=== PATIENT | female | born 1955 | race Caucasian/White ===

== ENCOUNTER → 2016-10-17 | Outpatient (CLI) | payer MEDICAID ==
--- NOTE | 2016-10-18 11:19 | XCELERA REPORT ---
[address] [address] Lower Extremity Arterial Evaluation Name: HUA CAVANAUGH Age: 60 yrs Gender: Female : 1955 Patient Status: Outpatient Patient Location: Study Date: 10/17/2016 10:08 AM Procedure: A color flow and duplex scan of the lower extremity arteries was performed bilaterally with velocity and waveform anaylsis. Ankle brachial indicies performed. Reason For Study: PVD Ordering Physician: QI STATON Performed By: Roney Martino Measurements and Calculations Right Left SENIOR LITIGATION PARALEGAL PSV 197.4 155.4 cm/sec Prox PFA PSV -180.7 -145.4 cm/sec Dist SFA PSV -115.2 -130.4 cm/sec Dist Pop A PSV 102.7 78.1 cm/sec Dist ASHOK PSV 89.9 65.3 cm/sec Dist RAIL TECHNICIAN PSV 94.8 110.0 cm/sec Slade Pedis PSV 120.1 42.4 cm/sec Right Side Arterial Evaluation Normal velocity and triphasic waveforms noted from the Common Femoral artery to the Popliteal. Biphasic with well preserved velocity in the infrageniculate vessels. 0-19% stenosis at the infrageniculate Vesels . Ankle Brachial index is 1.22. Left Side Arterial Evaluation Normal velocity and triphasic waveforms noted from the Common Femoral artery to the Popliteal. Biphasic with well preserved velocity in the infrageniculate vessels. 0-19% stenosis at the infrageniculate Vesels . Ankle Brachial index is 1.21. Interpretation Summary Mild hemodynamically significant lesions in the bilateral lower extremities, on duplex imaging, at rest. : QI STATON > Qi Staton
== END ==
LOC: SP 09:51
PROVIDERS: ATTEND Surgery
DX: I73.9 Peripheral vascular disease, unspecified (principal)
CPT/HCPCS: 93925

== ENCOUNTER 2017-01-17 15:56 | Inpatient (IN) | payer MEDICAID ==
--- NOTE | 2017-01-17 16:12 | ER Document Report ---
ED General - General Chief Complaint: Altered Mental Status Stated Complaint: UNCONSCIOUS Time Seen by Provider: 01/17/17 16:05 Information source: Emergency Med Personnel Notes: Patient reportedly found by family members earlier this afternoon altered mental status. History of alcohol abuse. History of prescription drug and chronic pain. Patient has prescriptions for muscle relaxants as well as narcotics. When EMS arrived patient was difficult to arouse. With open eyes. Pupils were 2 mm bilaterally. 0.4 mg Narcan given IV. IV established. Patient did respond. Patient was placed on gurney and transported to the emergency department. Patient is arousable on arrival. Sitting upright on the stretcher. Opening eyes. Protecting airway. Following commands. Sleepy but arousable. Denies any complaints at this time. TRAVEL OUTSIDE OF THE [place] IN LAST 30 DAYS: No - Related Data Allergies/Adverse Reactions: No Known Allergies Allergy (Verified 01/17/17 18:22) Past Medical History - General Cannot obtain history due to: Altered mental status - Social History Smoking Status: Unknown if Ever Smoked Family History: CAD, Hyperlipidemia, Hypertension - Past Medical History Cardiac Medical History: Reports: Hx Hypertension Pulmonary Medical History: Reports: Hx COPD - Recent Dx GI Medical History: Reports: Hx Gastroesophageal Reflux Disease Psychiatric Medical History: Reports: Hx Depression - Immunizations Hx Diphtheria, Pertussis, Tetanus Vaccination: Yes Review of Systems - Review of Systems -: Yes ROS unobtainable due to patient's medical condition Physical Exam - Vital signs Vitals: Resp BP Pulse Ox 18 157/77 H 94 01/17/17 16:06 01/17/17 16:06 01/17/17 16:06 Interpretation: Normal - General General appearance: Appears well, Alert, Lethargic - HEENT Head: Normocephalic, Atraumatic Eyes: Normal Pupils: PERRL - Respiratory Respiratory status: No respiratory distress Chest status: Nontender Breath sounds: Normal Chest palpation: Normal - Cardiovascular Rhythm: Regular Heart sounds: Normal auscultation Murmur: No - Abdominal Inspection: Normal Distension: No distension Bowel sounds: Normal Tenderness: Nontender Organomegaly: No organomegaly - Back Back: Normal, Nontender - Extremities General upper extremity: Normal inspection, Nontender, Normal color, Normal ROM , Normal temperature General lower extremity: Normal inspection, Nontender, Normal color, Normal ROM , Normal temperature, Normal weight bearing. No: Gavino's sign - Neurological Neuro grossly intact: Yes Cognition: Normal Orientation: AAOx4 [place] Coma Scale Eye Opening: Spontaneous Just[place] Coma Scale Verbal: Oriented [place] Coma Scale Motor: Obeys Commands [place] Coma Scale Total: 15 Speech: Normal Motor strength normal: LUE, RUE, LLE, RLE Sensory: Normal - Psychological Associated symptoms: Normal affect, Normal mood - Skin Skin Temperature: Warm Skin Moisture: Dry Skin Color: Normal Course - Re-evaluation Re-evalutation: 01/17/17 19:10 Delay in obtaining labs unknown reason at this time. Labs are finally coming back. Patient slightly low bicarb. An ABG with a pH 7.29. Likely a metabolic acidosis with some combined respiratory acidosis. Patient will need to be admitted likely to ICU. Head CT, chest x-ray, EKG unremarkable. Negative alcohol. Negative Tylenol. No signs of trauma. Responded initially to Narcan. Does have prescription for narcotics as well as muscle relaxants. Will consult with hospitalist for admission at this time. 01/17/17 19:32 Consulted with hospitalist, Dr. Paris. We will tentatively place patient in ICU due to her obtunded status. Unclear etiology of patient's altered mental status. Suspect this time this could be prescription medication reaction as she does have narcotics as well as muscle relaxants. Blood cultures have been obtained. We will proceed with admission at this time. - Vital Signs Vital signs: Temp Pulse Resp BP Pulse Ox 97.6 F 75 13 145/68 H 93 01/17/17 16:48 01/17/17 16:48 01/17/17 17:01 01/17/17 17:01 01/17/17 17:01 - Laboratory Result Diagrams: 01/17/17 18:30 01/17/17 18:30 Laboratory results interpreted by me: 01/17/17 01/17/17 01/17/17 18:18 18:30 18:30 WBC 20.8 H Seg Neuts % (Manual) 83 H Lymphocytes % (Manual) 10 L Abs Neuts (Manual) 17.3 H Abs Monocytes (Manual) 1.5 H ABG pH 7.29 L ABG pO2 68.9 L ABG HCO3 19.0 L ABG Total CO2 20.2 L ABG O2 Saturation 91.9 L Sodium 136.0 L Carbon Dioxide 16 L Est GFR ( Amer) 59 L Est GFR (Non-Af Amer) 49 L Direct Bilirubin 0.6 H Acetaminophen < 10 L - Diagnostic Test Radiology reviewed: Reports reviewed Radiology results interpreted by me: 01/17/17 19:35 CT head unremarkable. chest x-ray unremarkable. 01/17/17 19:35 - EKG Interpretation by Me EKG shows normal: Sinus rhythm Rate: Normal Rhythm: NSR When compared to previous EKG there are: Previous EKG unavailable Critical Care Note - Critical Care Note Total time excluding time spent on procedures (mins): 60 Comments: Patient with acidosis, metabolic acidosis as well as altered mental status from presumptive overdose. Systems involved include metabolic and neurological dysfunction Discharge - Discharge Clinical Impression: Metabolic acidosis Altered mental status, unspecified Qualifiers: Altered mental status type: unspecified Qualified Code(s): R41.82 - Altered mental status, unspecified Leukocytosis Qualifiers: Leukocytosis type: unspecified Qualified Code(s): D72.829 - Elevated white blood cell count, unspecified Disposition: ADMITTED INPATIENT Unit Admitted: ICU Referrals: GRETTA GREY MD [Primary Care Provider] - Follow up as needed
--- NOTE | 2017-01-17 16:55 | RADIOLOGY REPORT (SQ) ---
EXAM DESCRIPTION: CHEST SINGLE VIEW COMPLETED DATE/TIME: 01/17/2017 4:48 pm REASON FOR STUDY: sob COMPARISON: 02/24/2015 EXAM PARAMETERS: NUMBER OF VIEWS: One view. TECHNIQUE: Single frontal radiographic view of the chest acquired. RADIATION DOSE: NA LIMITATIONS: None. FINDINGS: LUNGS AND PLEURA: No opacities, masses or pneumothorax. No pleural effusion. MEDIASTINUM AND HILAR STRUCTURES: No masses. Contour normal. HEART AND VASCULAR STRUCTURES: Heart normal in size. Normal vasculature. BONES: No acute findings. HARDWARE: None in the chest. OTHER: No other significant finding. IMPRESSION: NO ACUTE RADIOGRAPHIC FINDING IN THE CHEST. TECHNICAL DOCUMENTATION: JOB ID: [id number]
--- NOTE | 2017-01-17 17:20 | RADIOLOGY REPORT (SQ) ---
EXAM DESCRIPTION: CT HEAD WITHOUT COMPLETED DATE/TIME: 01/17/2017 5:04 pm REASON FOR STUDY: alterd mental status COMPARISON: None. TECHNIQUE: Axial images acquired through the brain without intravenous contrast. Images reviewed wi th bone, brain and subdural windows. Images stored on PACS. All CT scanners at this facility use dose modulation, iterative reconstruction, and/or weight based d osing when appropriate to reduce radiation dose to as low as reasonably achievable (ALARA). [facility]: Dose Right [facility]: CareDose [facility]: Dose Right [facility]: Teradose 4D [facility]: [employer] Technologies RADIATION DOSE: Up-to-date CT equipment and radiation dose reduction techniques were employed. CTDIv ol: 64.6 mGy. DLP: 1551 mGy-cm. mGy. LIMITATIONS: None. FINDINGS: VENTRICLES: Normal size and contour. CEREBRUM: No masses. No hemorrhage. No midline shift. No evidence for acute infarction. Normal gra y/white matter differentiation. No areas of low density in the white matter. CEREBELLUM: No masses. No hemorrhage. No alteration of density. No evidence for acute infarction. EXTRAAXIAL SPACES: No fluid collections. No masses. ORBITS AND GLOBE: No intra- or extraconal masses. Normal contour of globe without masses. CALVARIUM: No fracture. PARANASAL SINUSES: No fluid or mucosal thickening. SOFT TISSUES: No mass or hematoma. OTHER: No other significant finding. IMPRESSION: No acute intracranial findings. EVIDENCE OF ACUTE STROKE: NO. COMMENT: Quality ID # [id number]: Final reports with documentation of one or more dose reduction techniques (e.g., Automated exposure control, adjustment of the mA and/or kV according to patient size, use of iterative reconstruction technique) TECHNICAL DOCUMENTATION: JOB ID: [id number] [employer]- All Rights Reserved
[2017-01-17 18:30] LABS: ARTERIAL BLOOD BASE EXCESS -7.1 mmol/L; ARTERIAL BLOOD O2 SATURATION 91.9 % (94-98)
[2017-01-17] MEDS ORDERED: NORMAL SALINE 1000 ML 1,000 ML IV ONE (18:44)
[2017-01-17 19:03] LABS: ALANINE AMINOTRANSFERASE 18 U/L (9-52); ALBUMIN 4.3 g/dL (3.5-5.0); ALCOHOL < 10 mg/dL (NONE DETECTED); ALKALINE PHOSPHATASE 115 U/L (38-126); ANION GAP 14 (5-19); ASPARTATE AMINO TRANSFERASE 20 U/L (14-36); BILIRUBIN,DIRECT 0.6 mg/dL (0.0-0.4); BILIRUBIN,TOTAL 0.6 mg/dL (0.2-1.3); BLOOD UREA NITROGEN 18 mg/dL (7-20); CARBON DIOXIDE 16 mmol/L (22-30); CHLORIDE 106 mmol/L (98-107); CREATINE KINASE 68 U/L (30-135); CREATININE RESULT 1.14 mg/dL (0.52-1.25); GLUCOSE 108 mg/dL (75-110); POTASSIUM 4.6 mmol/L (3.6-5.0); TOTAL PROTEIN 7.2 g/dL (6.3-8.2)
[2017-01-17 19:04] LABS: HEMATOCRIT 43.9 % (36.0-47.0); HEMOGLOBIN 14.8 g/dL (12.0-15.5); HGB HCT DIFFERENCE 0.5; MEAN CORPUSCULAR HEMOGLOBIN 30.1 pg (27.0-33.4); MEAN CORPUSCULAR HGB CONC 33.6 g/dL (32.0-36.0); MEAN CORPUSCULAR VOLUME 90 fl (80-97); RED CELL DISTRIBUTION WIDTH 13.5 % (11.5-14.0); WHITE BLOOD COUNT 20.8 10^3/uL (4.0-10.5)
[2017-01-17 19:13] LABS: BASOPHILS % (MANUAL) 0 % (0-2); EOSINOPHILS % (MANUAL) 0 % (0-6); LYMPHOCYTES % (MANUAL) 10 % (13-45); TOTAL CELLS COUNTED 100
[2017-01-17 19:16] LABS: OVALOCYTES SLIGHT; POIKILOCYTOSIS SLIGHT; TOXIC GRANULATION SLIGHT
[2017-01-17 20:16] LABS: APPEARANCE,URINE CLEAR; BILIRUBIN,URINE NEGATIVE (NEGATIVE); GLUCOSE, URINE NEGATIVE (NEGATIVE); KETONES,URINE NEGATIVE (NEGATIVE); LEUKOCYTE ESTERASE,URINE NEGATIVE (NEGATIVE); NITRITE,URINE NEGATIVE (NEGATIVE); PROTEIN,URINE NEGATIVE (NEGATIVE); URINE SPECIFIC GRAVITY 1.005; UROBILINOGEN,URINE NEGATIVE mg/dL (<2.0)
[2017-01-17 20:18] LABS: URINE BARBITURATES SCREEN NEGATIVE; URINE METHADONE SCREEN NEGATIVE; URINE OPIATES LOW NEGATIVE; URINE PHENCYCLIDINE SCREEN NEGATIVE
[2017-01-17] MEDS ORDERED: IPRATROPIUM/ALBUTEROL 0.5-2.5 MG/3 ML AMPUL NEB PRN (21:26)
[2017-01-17] MEDS ORDERED: DEXTROSE 50%-WATER 25 GM/50 ML DISP.SYRIN IV PRN ×2 (21:28)
[2017-01-17] MEDS ORDERED: DEXTROSE 40% GEL 15 GM TUBE PO PRN ×2 (21:28)
[2017-01-17] MEDS ORDERED: GLUCAGON,HUMAN RECOMB 1 MG INJ SUBCUT PRN (21:28)
[2017-01-17] MEDS ORDERED: INSULIN LISPRO 100 UNIT/ML 3 ML VIAL SUBCUT PRN (21:34)
[2017-01-17] MEDS ORDERED: ACETAMINOPHEN 650 MG SUPP.RECT PR PRN (21:35)
[2017-01-17] MEDS ORDERED: PROMETHAZINE HCL 25 MG SUPP.RECT PR PRN (21:36)
[2017-01-17] MEDS ORDERED: AMPICILLIN SOD/SULBACTAM 3 GM VIAL IV SCH (21:45)
[2017-01-17] MEDS ORDERED: METHYLPREDNISOLONE INJ 125 MG/2 ML SDV IV SCH (21:45)
[2017-01-17] MEDS ORDERED: PHARMACY COMMUNICATION ORDER MC SCH (21:45)
[2017-01-17] MEDS ORDERED: HEPARIN SOD (PORCINE) 5,000 UNIT/ML 1 ML SYRINGE SUBCUT SCH (22:00)
[2017-01-17] MEDS ORDERED: AZITHROMYCIN 500 MG in DEXTROSE 5%-WATER 250 ML IV SCH (22:00)
[2017-01-17] MEDS ORDERED: CEFTRIAXONE 1 GM/D5W RTU 50 ML IV SCH (22:00)
--- NOTE | 2017-01-17 22:14 | PDOC H&P ---
History of Present Illness Admission Date/PCP: 01/17/17 19:58 GRETTA GREY MD Patient complains of: Altered mental status History of Present Illness: HUA CAVANAUGH is a 61 year old female, pack-a-day smoker, in with a history of both alcohol abuse and cocaine use, although no alcohol or drug use for at least 2 years according to sister, who presents to the emergency room by EMS after call from family due to above complaint. Patient has been discussed with emergency room physician who evaluated the patient. Patient looks at speaker slightly and briefly when her name is called , but is essentially nonverbal and otherwise not interactive with her surroundings and is able to provide no history whatsoever in terms of acute or chronic events, review of systems, personal habits, family history, etc. sister is present at her side and is helpful and informative. Old inpatient records are reviewed. Patient lives alone, but has close family support. She was last seen in her normal state on the fourth, when sister took her out shopping. No specific complaints at that time, including headache chest or abdominal pain, fever or chills, nausea vomiting, diarrhea or dysuria. When patient did not answer her phone today, sister present at bedside, along with another sister, went to house and found her sitting in a chair, basically unresponsive to verbal stimuli. No evidence of emesis or diarrhea. EMS was called. Patient was difficult to arouse. Eyes were open, with 2 mm bilateral pupils. Given 0.4 mg of IV Narcan, with slight response per EMS. Has remained hemodynamically stable. Sister did state that patient has been having "bad nightmares" increasingly frequently lately, and suspects her sister may have taken additional medications to relieve these nightmares. No prior seizure, stroke, TIA, or mini stroke. No history of overdose. No suicidal or homicidal ideation. According to sister, patient is otherwise compliant with medications and Dr. follow-up visits. She does not drive due to chronic difficulty with ambulation , requiring bilateral braces and a cane. Chronic bilateral foot drop?? Otherwise, she is able to maintain activities of daily living, including shopping, cooking and cleaning her house. 2 years ago, patient had severe pneumonia, requiring a 3 month stay at [facility]. Hospitalized on our service February 14-2014, with discharge diagnoses including necrotizing pneumonia with cavitary right upper lobe lesion, atrial fibrillation with rapid ventricular response moderate aortic regurgitation with mild pulmonary hypertension. Discharge summary has been reviewed. Was admitted to our service February 2011 with diagnoses including chest pain, alcohol abuse, with a case of beer every 3 days at that point in time, pack-a- day smoker, and cocaine abuse. Copy of the history and physical has been reviewed. Dictation via voice recognition software. Laboratory results are listed in [facility] and are reviewed. X-ray summary results are listed below, with full report(s) reviewed. . EKG reviewed. Social history/personal habits: Lives alone. Has children. On disability due to above issues. Personal habits as noted above. No known drug allergies. Home medications initially autopopulated into sevenload may not accurately reflect patient's true medications, dosages, and/or frequencies. bone density technician to reconcile medications. Unfortunately, patient not able to provide any information related to medications/dosages/frequencies; likewise for sister. REVIEW OF SYSTEMS: See history and present illness. No further information available this point in time. PHYSICAL EXAMINATION: Female emergency room nursing information systems coordinator Jayy is present. Sister Phuong Harris is present at her side. 5 feet 7 inches tall. 83.9 kg. BMI 29 kg/m. Blood pressure 173/76. 91% saturation on 1 L oxygen per nasal cannula. Pulse 94 and regular. Respirations are 21 and unlabored, although somewhat coarse in nature. Temperature 97.6. Chronically ill-appearing female who appears a number of years older than her stated age. Patient is somewhat somnolent, but does open eyes occasionally spontaneously. See above comments in history and present illness. Maintaining airway well. Skin is warm and dry. No grossly obvious evidence of rash in areas of skin examined. No subcutaneous nodules palpated. ENT: See above comments in history of present illness. No coffman sign. Eyes: No scleral icterus. Pupils equal and reactive to light at 4 mm. [place] conjunctivae. No raccoon eyes. Neck is supple and nontender to gentle passive range of motion and palpation. Midline trachea. No palpable thyroid nodule mass enlargement or tenderness. Lymphatic: No palpable cervical or clavicular nodes. Neck and lymphatic exams limited by patient body habitus. Psychiatric: Not able to be adequately evaluated due to above issues. Lungs: Auscultation reveals equal breath sounds bilaterally. No use of accessory respiratory muscles. Coarse breath sounds bilaterally, which I think are combination of both upper and lower airway sounds. Cardiovascular: Heart regular rate and rhythm, without gallop murmur or rub. No carotid or abdominal aortic bruits. Mild bilateral symmetric slightly pitting lower calf, ankle, and pedal edema. Faintly palpable right dorsalis pedis and left posterior tibial pulses. Abdomen:soft slightly distended nontender with positive bowel sounds. Unable to adequately evaluate abdomen for masses or organomegaly due to distention. Extremities: Hands and feet are warm and dry. No calf tenderness to compression. No grossly obvious visual evidence of calf swelling. Gentle manipulation of upper and lower extremities fails to reveal any obvious evidence of injury or instability to involved major joints. Neuro: Cranial Nerves not able to be adequately examined due to above issues. Light touch not able to be adequately examined due to above issues. Moves all 4 extremities grossly normally. Hand liner roll changer 5/5 and symmetric. Does not follow requests or commands for testing of other muscle groups of upper and lower extremities. Patellar reflexes absent. Absent Babinski. No nystagmus. No rigidity. No ankle clonus. Slightly tremulous at times, but no evidence of seizure activity. Past Medical History Cardiac Medical History: Reports: Atrial Fibrillation - History of, February 2015, Congestive Heart Failure - History of during her hospital stay for pneumonia 2 years ago., Hypertension Denies: DVT, Myocardial Infarction, Hyperlipidema, Pulmonary Embolism Pulmonary Medical History: Reports: Chronic Obstructive Pulmonary Disease (COPD ) - Recent Dx Denies: Asthma, Sleep Apnea EENT Medical History: Reports: Eyes - Wears glasses, Ears - Partial hearing loss Denies: Throat Neurological Medical History: Denies: Hemorrhagic CVA, Ischemic CVA, Seizures Endocrine Medical History: Denies: Diabetes Mellitus Type 1, Diabetes Mellitus Type 2, Hyperthyroidism, Hypothyroidism Renal/ Medical History: Reports: None GI Medical History: Reports: Gastroesophageal Reflux Disease Denies: Cirrhosis, Hepatitis, Peptic Ulcer Disease Musculoskeltal Medical History: Denies: Arthritis Skin Medical History: Reports: None Psychiatric Medical History: Reports: Alcohol Dependency, Depression, General Anxiety Disorder, Substance Abuse, Tobacco Dependency, Other - History of cocaine use. History of alcohol abuse. Hematology: Reports: Other - Easy bruising Infectious Medical History: Denies: Hepatitis B, Hepatitis C Past Surgical History Past Surgical History: Reports: None Social History Information Source: Relative - Sister, Emergency Med Personnel, [facility] [place] Records Lives with: Alone - Close follow-up family support Smoking Status: Current Every Day Smoker - 1 pack per day Frequency of Alcohol Use: None - History of alcohol abuse; reportedly none since 2014 Hx Recreational Drug Use: Yes Drugs: Cocaine - History of use, Marijuana - History of use, Other - Reportedly no illicit drug use since at least 2014 Hx Prescription Drug Abuse: No - Advance Directive Resuscitation Status: Full Code Surrogate healthcare decision maker:: Sister Phuong Harris Family History Family History: CAD, Hyperlipidemia, Hypertension Parental Family History Reviewed: Yes - Mother is diabetic. Father of uncertain cause. Children Family History Reviewed: Yes - Healthy Sibling(s) Family History Reviewed.: Yes - Healthy Medication/Allergy Home Medications: Cyclobenzaprine HCl [Flexeril 10 mg Tablet] 10 mg PO TID 01/18/17 Ibuprofen [Motrin 800 mg Tablet] 800 mg PO BID 01/18/17 Albuterol Sulfate [Ventolin HFA MDI 18 GM] 1 - 2 puff IH Q4H PRN #1 mdi Amoxicillin/Potassium Clav [Augmentin 875-125 Tablet] 1 each PO BID #14 tablet 01/20/17 Diltiazem HCl [Cardizem Cd 180 mg Capsule] 180 mg PO Q12 #60 capsule.cr Divalproex Sodium [Depakote ER 500 mg Tab.sr] 500 mg PO BID #60 tab.sr.24h 01/20 Fluoxetine HCl [Prozac 20 mg Capsule] 20 mg PO DAILY #30 capsule 01/20/17 Metoprolol Succinate 100 mg PO Q12 #60 tab.er.24h 01/20/17 Prednisone [Deltasone 20 mg Tablet] 20 mg PO BID #10 tablet 01/20/17 Risperidone [Risperdal 1 mg Tablet] 1 mg PO QHS #30 tablet 01/20/17 Allergies/Adverse Reactions: No Known Allergies Allergy (Verified 01/17/17 18:22) Physical Exam Vital Signs: Temp Pulse Resp BP Pulse Ox 97.6 F 75 13 145/68 H 93 01/17/17 16:48 01/17/17 16:48 01/17/17 17:01 01/17/17 17:01 01/17/17 17:01 Results Impressions: Chest X-Ray 01/17/17 16:07 IMPRESSION: NO ACUTE RADIOGRAPHIC FINDING IN THE CHEST. Head CT 01/17/17 16:07 IMPRESSION: No acute intracranial findings. EVIDENCE OF ACUTE STROKE: NO. Assessment & Plan - Diagnosis (1) Elevated LFTs Is this a current diagnosis for this admission?: Yes Plan: Mild. Follow-up chemistry. No known underlying biliary disease. (2) ARF (acute renal failure) Qualifiers: Acute renal failure type: unspecified Qualified Code(s): N17.9 - Acute kidney failure, unspecified Is this a current diagnosis for this admission?: Yes Plan: Suspect prerenal, due to decreased p.o. intake. Mild. Follow-up chemistry. (3) Nightmares Is this a current diagnosis for this admission?: Yes (4) Tobacco dependency Is this a current diagnosis for this admission?: Yes Plan: As needed nicotine patch. (5) Abnormal breath sounds Is this a current diagnosis for this admission?: Yes Plan: Suspect due to aspiration. We will treat as for aspiration pneumonia. Aspiration precautions. (6) Leukocytosis Qualifiers: Leukocytosis type: unspecified Qualified Code(s): D72.829 - Elevated white blood cell count, unspecified Is this a current diagnosis for this admission?: Yes (7) Acute encephalopathy Is this a current diagnosis for this admission?: Yes Plan: Suspect due to likely unintentional prescription drug overdose. Intensive care unit. Seizure precautions. Should clear with time and treatment. I have encouraged sister to remind patient not to get out of bed, to avoid a fall with injury. Knee high SCDs for DVT prophylaxis, along with subcutaneous heparin. Impression and plans were discussed with sister, who concurs. Time spent in evaluation and management of patient: 70 critical care minutes. (8) Falls frequently Is this a current diagnosis for this admission?: Yes Plan: Suspect due to chronic difficulty walking, including use of braces, crutch, and reported bilateral foot drop. Physical therapy consult. (9) Depression Qualifiers: Depression Type: unspecified Qualified Code(s): F32.9 - Major depressive disorder, single episode, unspecified Is this a current diagnosis for this admission?: Yes Plan: Resume home medications as appropriate once these have been determined and reviewed. (10) Hypertension Qualifiers: Hypertension type: essential hypertension Qualified Code(s): I10 - Essential (primary) hypertension Is this a current diagnosis for this admission?: Yes Plan: Resume home medications as appropriate once these have been determined and reviewed. (11) Difficulty waking Is this a current diagnosis for this admission?: Yes (12) Metabolic acidosis Is this a current diagnosis for this admission?: Yes Plan: Should clear with time and treatment. Follow-up chemistry. (13) Aspiration into airway Qualifiers: Encounter type: initial encounter Qualified Code(s): T17.908A - Unspecified foreign body in respiratory tract, part unspecified causing other injury, initial encounter Is this a current diagnosis for this admission?: Yes Plan: Aspiration precautions. Unasyn. N.p.o. for the present time. - Time Critical Time spent with patient: 35 or more minutes Anticipated discharge: Home Within: within 72 hours - Inpatient Certification Based on my medical assessment, after consideration of the patient's comorbidities, presenting symptoms, or acuity I expect that the services needed warrant INPATIENT care.: Yes I certify that my determination is in accordance with my understanding of Medicare's requirements for reasonable and necessary INPATIENT services [42 CFR 412.3e].: Yes Medical Necessity: Need Close Monitoring Due to Risk of Patient Decompensation, Need For IV Fluids, Need For Continuous Telemetry Monitoring, Need for Nebulizer Therapy and Monitoring of Response, Need for IV Antibiotics, Risk of Diagnosis Which Will Require Inpatient Eval/Care/Monitoring Post Hospital Care: D/C or Transfer Summary
[2017-01-17 22:15] LABS: ADD ON TESTING BLD IN LAB ACKNOWLEDGE
[2017-01-17 22:24] LABS: PROTHROMBIN TIME 12.6 SEC (11.4-15.4)
[2017-01-17 22:38] LABS: MAGNESIUM 1.9 mg/dL (1.6-2.3)
[2017-01-17] MEDS ORDERED: THIAMINE HCL INJ 200 MG/2 ML VIAL IV PRN (23:22)
[2017-01-17] MEDS ORDERED: THIAMINE HCL 100 MG in NORMAL SALINE 50 ML IV ONE (23:30)
[2017-01-18] MEDS ORDERED: THIAMINE HCL INJ 200 MG/2 ML VIAL ONE (00:49)
[2017-01-18] MEDS: FAMOTIDINE INJ/PF 20 MG/2 ML SDV IV SCH ×3 (00:54→22:22)
[2017-01-18] MEDS: AMPICILLIN SODIUM/SULBACTAM NA 3 GM in NORMAL SALINE 100 ML IV SCH ×4 (00:54→18:16)
[2017-01-18] MEDS: NORMAL SALINE 1000 ML 1,000 ML IV PRN ×2 (00:57→06:22)
[2017-01-18 01:21] LABS: VENOUS BLOOD BASE EXCESS -4.3 mmol/L; VENOUS BLOOD HCO3 22.9 mmol/L (20-32); VENOUS BLOOD PCO2 50.3 mmHg (35-63); VENOUS BLOOD PH 7.28 (7.30-7.42)
[2017-01-18 01:48] LABS: FREE T3 3.12 pg/mL (2.77-5.27)
[2017-01-18] MEDS ORDERED: HYDRALAZINE HCL INJ/PF 20 MG/1 ML SDV IV PRN (02:43)
[2017-01-18] MEDS ORDERED: DILTIAZEM HCL INJ 25 MG/5 ML VIAL ONE (05:55)
[2017-01-18 05:59] LABS: ABSOLUTE BASOPHILS # (AUTO) 0.2 10^3/uL (0.0-0.2); ABSOLUTE EOSINOPHILS # (AUTO) 0.2 10^3/uL (0.0-0.6); ABSOLUTE LYMPHOCYTES (AUTO) 2.4 10^3/uL (0.5-4.7); ABSOLUTE MONOCYTES (AUTO) 0.9 10^3/uL (0.1-1.4); ABSOLUTE NEUT (AUTO) 9.2 10^3/uL (1.7-8.2); BASOPHILS % (AUTO) 1.2 % (0-2); EOSINOPHILS % (AUTO) 1.7 % (0-6); HEMATOCRIT 36.7 % (36.0-47.0); HGB HCT DIFFERENCE 0.8; LYMPHOCYTES % (AUTO) 18.7 % (13-45); MEAN CORPUSCULAR HEMOGLOBIN 30.4 pg (27.0-33.4); MEAN CORPUSCULAR HGB CONC 33.9 g/dL (32.0-36.0); MEAN CORPUSCULAR VOLUME 90 fl (80-97); MONOCYTES % (AUTO) 7.2 % (3-13); RED CELL DISTRIBUTION WIDTH 12.8 % (11.5-14.0); SEGMENTED NEUTROPHILS % (AUTO) 71.2 % (42-78)
[2017-01-18 06:00] LABS: VENOUS BLOOD BASE EXCESS -5.1 mmol/L; VENOUS BLOOD HCO3 20.9 mmol/L (20-32); VENOUS BLOOD PCO2 42.4 mmHg (35-63); VENOUS BLOOD PH 7.31 (7.30-7.42)
[2017-01-18] MEDS ORDERED: NORMAL SALINE 1000 ML 500 ML IV ONE (06:00)
[2017-01-18 06:03] LABS: ALANINE AMINOTRANSFERASE 25 U/L (9-52); ALBUMIN 3.3 g/dL (3.5-5.0); ALKALINE PHOSPHATASE 95 U/L (38-126); ANION GAP 12 (5-19); ASPARTATE AMINO TRANSFERASE 13 U/L (14-36); BILIRUBIN,DIRECT 0.4 mg/dL (0.0-0.4); BILIRUBIN,TOTAL 0.4 mg/dL (0.2-1.3); BLOOD UREA NITROGEN 11 mg/dL (7-20); CALCIUM 8.9 mg/dL (8.4-10.2); CARBON DIOXIDE 18 mmol/L (22-30); CHLORIDE 114 mmol/L (98-107); CREATININE RESULT 0.73 mg/dL (0.52-1.25); GLUCOSE 85 mg/dL (75-110); POTASSIUM 3.8 mmol/L (3.6-5.0); SODIUM 143.6 mmol/L (137-145); TOTAL PROTEIN 5.7 g/dL (6.3-8.2)
[2017-01-18] MEDS ORDERED: DILTIAZEM HCL/D5W 125 MG/125 ML RTUINJ IV ONE (06:03)
[2017-01-18] MEDS ORDERED: DILTIAZEM HCL INJ 25 MG/5 ML VIAL IV ONE ×2 (06:04)
[2017-01-18] MEDS ORDERED: DILTIAZEM HCL/D5W 125 MG/125 ML RTUINJ IV PRN (06:04)
[2017-01-18 06:05] LABS: HEMOGLOBIN 12.5 g/dL (12.0-15.5)
[2017-01-18] MEDS ORDERED: BACITRACIN ZINC OINTMENT 15 GM TP PRN (08:21)
[2017-01-18] MEDS ORDERED: MAGNESIUM SULFATE/D5W 1 GM/100 ML RTUPB IV ONE (09:00)
[2017-01-18] MEDS ORDERED: DILTIAZEM HCL 180 MG CAPSULE.CR PO ONE (09:00)
[2017-01-18] MEDS: NICOTINE 21 MG/24 HR PATCH.TD24 TD SCH (09:08)
[2017-01-18] MEDS: ENOXAPARIN SODIUM INJ 60 MG/0.6 ML DISP.SYRIN SUBCUT SCH ×2 (09:09→22:22)
[2017-01-18] MEDS ORDERED: DIPH/PERTUSS(ACELL)/TETANUS VAC/PF 0.5 ML SYR (>=10YO) IM ONE (09:30)
[2017-01-18] MEDS ORDERED: METOPROLOL TARTRATE PF/INJ 5 MG/5 ML SDV IV ONE ×3 (09:47→18:46)
[2017-01-18] MEDS ORDERED: ENOXAPARIN SODIUM INJ 40 MG/0.4 ML DISP.SYRIN SUBCUT SCH (10:00)
[2017-01-18] MEDS ORDERED: THIAMINE HCL 100 MG in NORMAL SALINE 50 ML IV SCH (10:00)
--- NOTE | 2017-01-18 10:57 | EKG REPORT ---
SEVERITY:- BORDERLINE ECG - SINUS RHYTHM PROBABLE LEFT ATRIAL ABNORMALITY : Confirmed by: Dena Castanon MD 18-Jan-2017 10:57:14
--- NOTE | 2017-01-18 10:57 | EKG REPORT ---
SEVERITY:- ABNORMAL ECG - ATRIAL FIBRILLATION, V-RATE 121-185 CONSIDER LEFT [address]ULAR HY[address] DEPRESSION, PROBABLY RATE RELATED : Confirmed by: Dena Castanon MD 18-Jan-2017 10:57:09
--- NOTE | 2017-01-18 11:57 | PDOC CONSULTATION ---
Consultation Consult Date: 01/18/17 Attending physician:: JOSE PARIS Consult reason:: Atrial fibrillation History of Present Illness Admission Date/PCP: 01/17/17 21:26 GRETTA GREY MD Patient complains of: Altered mental status History of Present Illness: HUA CAVANAUGH is a 61 year old female, pack-a-day smoker, in with a history of both alcohol abuse and cocaine use, although no alcohol or drug use for at least 2 years according to sister, who presents to the emergency room by EMS after call from family due to above complaint. Patient has been discussed with emergency room physician who evaluated the patient. Patient looks at speaker slightly and briefly when her name is called , but is essentially nonverbal and otherwise not interactive with her surroundings and is able to provide no history whatsoever in terms of acute or chronic events, review of systems, personal habits, family history, etc. sister is present at her side and is helpful and informative. Old inpatient records are reviewed. Patient lives alone, but has close family support. She was last seen in her normal state on the fourth, when sister took her out shopping. No specific complaints at that time, including headache chest or abdominal pain, fever or chills, nausea vomiting, diarrhea or dysuria. When patient did not answer her phone today, sister present at bedside, along with another sister went to house and found her sitting in a chair, basically unresponsive to verbal stimuli. No evidence of emesis or diarrhea. EMS was called. Patient was difficult to arouse. Eyes were open, with 2 mm bilateral pupils. Given 0.4 mg of IV Narcan, with slight response by EMS. Has remained hemodynamically stable. Sister did state that patient has been having "bad nightmares" increasingly frequently lately, and suspects her sister may have taken additional medications to relieve these nightmares. No prior seizure, stroke, TIA, or mini stroke. No history of overdose. No suicidal or homicidal ideation. According to sister, patient is otherwise compliant with medications and Dr. follow-up visits. She does not drive due to chronic difficulty with ambulation , requiring bilateral braces and a cane. Chronic bilateral foot drop?? Otherwise, she is able to maintain activities of daily living, including shopping, cooking and cleaning her house. 2 years ago, patient had severe pneumonia, requiring a 3 month stay at [facility]. Hospitalized on our service February 14-2014, with discharge diagnoses including necrotizing pneumonia with cavitary right upper lobe lesion, atrial fibrillation with rapid ventricular response moderate aortic regurgitation with mild pulmonary hypertension. Discharge summary has been reviewed. Was admitted to our service February 2011 with diagnoses including chest pain, alcohol abuse, with a case of beer every 3 days at that point in time, pack-a- day smoker, and cocaine abuse. Copy of the history and physical has been reviewed. This history obtained by Dr. Paris was reviewed. Today patient on questioning told me that she just took extra of her regular sleeping pills and had mental status changes. On questioning she is denying any chest pain, shortness of breath or any other significant discomfort or complaints. Patient wanting to be discharged home. Past Medical History Cardiac Medical History: Reports: Atrial Fibrillation - History of, February 2015, Congestive Heart Failure - History of during her hospital stay for pneumonia 2 years ago., Hypertension Denies: DVT, Myocardial Infarction, Hyperlipidema, Pulmonary Embolism Pulmonary Medical History: Reports: Chronic Obstructive Pulmonary Disease (COPD ) - Recent Dx Denies: Asthma, Sleep Apnea EENT Medical History: Reports: Eyes - Wears glasses, Ears - Partial hearing loss , Other - Easy bruising Denies: Throat Neurological Medical History: Denies: Hemorrhagic CVA, Ischemic CVA, Seizures Endocrine Medical History: Denies: Diabetes Mellitus Type 1, Diabetes Mellitus Type 2, Hyperthyroidism, Hypothyroidism Renal/ Medical History: Reports: None GI Medical History: Reports: Gastroesophageal Reflux Disease Denies: Cirrhosis, Hepatitis, Peptic Ulcer Disease Musculoskeltal Medical History: Denies: Arthritis Skin Medical History: Reports: None Psychiatric Medical History: Reports: Alcohol Dependency, Depression, General Anxiety Disorder, Substance Abuse, Tobacco Dependency, Other - History of cocaine use. History of alcohol abuse. Hematology: Reports: Other - Easy bruising Infectious Medical History: Denies: Hepatitis B, Hepatitis C Past Surgical History Past Surgical History: Reports: None Social History Information Source: Patient Lives with: Alone - Close follow-up family support Smoking Status: Current Every Day Smoker - 1 pack per day Cigarettes Packs Per Day: 1 Last Time Smoked: 01/17/17 Frequency of Alcohol Use: None - History of alcohol abuse; reportedly none since 2014 Hx Recreational Drug Use: Yes Drugs: Cocaine - History of use, Marijuana - History of use, Other - Reportedly no illicit drug use since at least 2014 Hx Prescription Drug Abuse: No - Advance Directive Resuscitation Status: Full Code Surrogate healthcare decision maker:: Patient sister is the surrogate decision-maker Family History Family History: CAD, Hyperlipidemia, Hypertension Parental Family History Reviewed: Yes Children Family History Reviewed: Yes Sibling(s) Family History Reviewed.: Yes Medication/Allergy Home Medications: Cyclobenzaprine HCl [Flexeril 10 mg Tablet] 10 mg PO TID 01/18/17 Duloxetine HCl [Cymbalta] 30 mg PO DAILY 01/18/17 Eszopiclone [Lunesta] 2 mg PO QHS 01/18/17 Ibuprofen [Motrin 800 mg Tablet] 800 mg PO BID 01/18/17 Potassium Chloride [Klor-Con M20] 20 meq PO DAILY 01/18/17 Allergies/Adverse Reactions: No Known Allergies Allergy (Verified 01/17/17 18:22) Review of Systems Review of Systems: Please see history of present illness and past medical history as wall. Constitutional: No fever or chills reported. Head : No recent chronic headaches, recent head injury. Eyes: No recent eye pain, diplopia, redness, discharge, acute visual changes. Ears: No recent chronic ear pain, acute hearing loss, ear discharge. Oral cavity: No recent ulcerations, bleeding, oral cavity discomfort. Neck: No recent acute neck pain reported. Hematologic: No recent easy bruising or bleeding or hematologic malignancy reported. Lymphatic: No recent lymphatic malignancy, chronic lymphadenopathy reported yet Cardiovascular system review: See history of present illness. Respiratory system review: No recent chronic cough, hemoptysis, blood clots in the lungs reported. Mild Shortness of breath on exertion Gastrointestinal system review: Negative for any recent acute or chronic abdominal pain, hematemesis, melena, recent change in bowel habits. Genitourinary system review: No recent acute or chronic hematuria, flank pain, UTI etc. reported. Skin system review: Negative for any recent abnormal bruising, no rash, no pruritus reported. Neurologic: No prior history of strokes, mini strokes, seizure disorder. Psychologic: No history of major psychosis or major depression reported. Musculoskeletal: Minor aches and pains reported. No acute joint swelling reported. Endocrine: No recent polyuria, polydipsia, recent heat or cold intolerance. Physical Exam Vital Signs: Temp Pulse Resp BP Pulse Ox 98.4 F 114 H 14 151/77 H 99 01/18/17 06:00 10/06/17 08:00 01/18/17 08:00 01/18/17 06:10 01/18/17 08:00 Intake & Output 01/17/17 01/18/17 01/19/17 06:59 06:59 06:59 Intake Total 2466 Output Total 900 Balance -900 2466 Weight 58.3 kg Exam: GENERAL: well-nourished and in no acute distress. Alert and oriented x3 HEAD: Atraumatic, normocephalic. EYES: Pupils equal round and reactive to light, extraocular movements intact, sclera anicteric, conjunctiva are normal. ENT: TMs normal, nares patent, oropharynx clear without exudates. Moist mucous membranes. No oral ulcerations or bleeding gums noted NECK: supple without lymphadenopathy. Trachea is central. No cervical or axillary lymphadenopathy noted. Carotids are 2+, JVD WNL LUNGS: Respiration seems nonlabored, no significant accessory muscle action noted. Breath sounds clear to auscultation bilaterally and equal noted. No wheezes rales or rhonchi noted. No significant dullness noted on percussion. CHEST: Palpation of the chest wall shows no significant chest wall tenderness. No other significant abnormalities noted. 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 ABDOMEN: Soft, no significant tenderness appreciated, normoactive bowel sounds. No guarding, no rebound. No rigidity noted . No masses appreciated. EXTREMITIES: Pedal pulses are 1-2+, no calf tenderness noted. No clubbing or cyanosis.trace to 1+ pedal edema noted NEUROLOGICAL: Focused neurological exam showed no significant neurologic deficit. Normal speech, no focal weakness appreciated. PSYCH: Normal mood, normal affect. Judgment and insight within normal limits. SKIN: No significant ecchymosis, rash, ulcerations or signs of pruritus noted. MUSCULOSKELETAL EXAM: No significant joint swelling noted. Results Laboratory Results: 01/18/17 05:40 01/18/17 05:40 01/17/17 01/17/17 01/17/17 22:10 22:10 22:10 WBC RBC Hgb Hct MCV MCH MCHC RDW Plt Count Seg Neutrophils % Lymphocytes % Monocytes % Eosinophils % Basophils % Absolute Neutrophils Absolute Lymphocytes Absolute Monocytes Absolute Eosinophils Absolute Basophils VBG pH VBG pCO2 VBG HCO3 VBG Base Excess Sodium Potassium Chloride Carbon Dioxide Anion Gap BUN Creatinine Est GFR ( Amer) Est GFR (Non-Af Amer) Glucose Lactic Acid 0.7 Calcium Magnesium 1.9 Total Bilirubin AST ALT Alkaline Phosphatase Ammonia Total Protein Albumin TSH 0.22 L Free T4 Free T3 pg/mL 01/17/17 01/17/17 01/18/17 22:10 22:10 01:14 WBC RBC Hgb Hct MCV MCH MCHC RDW Plt Count Seg Neutrophils % Lymphocytes % Monocytes % Eosinophils % Basophils % Absolute Neutrophils Absolute Lymphocytes Absolute Monocytes Absolute Eosinophils Absolute Basophils VBG pH 7.28 L VBG pCO2 50.3 VBG HCO3 22.9 VBG Base Excess -4.3 Sodium Potassium Chloride Carbon Dioxide Anion Gap BUN Creatinine Est GFR ( Amer) Est GFR (Non-Af Amer) Glucose Lactic Acid Calcium Magnesium Total Bilirubin AST ALT Alkaline Phosphatase Ammonia < 8.7 L Total Protein Albumin TSH Free T4 1.58 Free T3 pg/mL 3.12 01/18/17 01/18/17 01/18/17 05:40 05:40 05:40 WBC 13.0 H RBC 4.10 Hgb 12.5 D Hct 36.7 MCV 90 MCH 30.4 MCHC 33.9 RDW 12.8 Plt Count 290 Seg Neutrophils % 71.2 Lymphocytes % 18.7 Monocytes % 7.2 Eosinophils % 1.7 Basophils % 1.2 Absolute Neutrophils 9.2 H Absolute Lymphocytes 2.4 Absolute Monocytes 0.9 Absolute Eosinophils 0.2 Absolute Basophils 0.2 VBG pH 7.31 VBG pCO2 42.4 VBG HCO3 20.9 VBG Base Excess -5.1 Sodium 143.6 Potassium 3.8 Chloride 114 H Carbon Dioxide 18 L Anion Gap 12 BUN 11 Creatinine 0.73 Est GFR ( Amer) > 60 Est GFR (Non-Af Amer) > 60 Glucose 85 Lactic Acid Calcium 8.9 Magnesium Total Bilirubin 0.4 AST 13 L ALT 25 Alkaline Phosphatase 95 Ammonia Total Protein 5.7 L Albumin 3.3 L TSH Free T4 Free T3 pg/mL 01/18/17 05:40 WBC RBC Hgb Hct MCV MCH MCHC RDW Plt Count Seg Neutrophils % Lymphocytes % Monocytes % Eosinophils % Basophils % Absolute Neutrophils Absolute Lymphocytes Absolute Monocytes Absolute Eosinophils Absolute Basophils VBG pH VBG pCO2 VBG HCO3 VBG Base Excess Sodium Potassium Chloride Carbon Dioxide Anion Gap BUN Creatinine Est GFR ( Amer) Est GFR (Non-Af Amer) Glucose Lactic Acid Calcium Magnesium 1.9 Total Bilirubin AST ALT Alkaline Phosphatase Ammonia Total Protein Albumin TSH Free T4 Free T3 pg/mL 01/18/17 01/18/17 01:14 05:40 Troponin I < 0.012 0.012 EKG Comments: Atrial fibrillation with rapid ventricular response. No acute ST-T wave changes noted. Impressions: Chest X-Ray 01/17/17 16:07 IMPRESSION: NO ACUTE RADIOGRAPHIC FINDING IN THE CHEST. Head CT 01/17/17 16:07 IMPRESSION: No acute intracranial findings. EVIDENCE OF ACUTE STROKE: NO. Assessment & Plan - Diagnosis (1) Atrial fibrillation with RVR Is this a current diagnosis for this admission?: Yes (2) Altered mental status, unspecified Qualifiers: Altered mental status type: unspecified Qualified Code(s): R41.82 - Altered mental status, unspecified Is this a current diagnosis for this admission?: Yes (3) COPD (chronic obstructive pulmonary disease) with emphysema Qualifiers: Emphysema type: unspecified Qualified Code(s): J43.9 - Emphysema, unspecified (4) Tobacco dependency Is this a current diagnosis for this admission?: Yes - Notes Notes: Atrial fibrillation with rapid ventricular response: This was noted on presentation. Currently patient in sinus rhythm. At this point recommend Cardizem therapy for rate control should patient to atrial fibrillation. As regards chronic anticoagulation, patient chads score is 1. Therefore in view of patient's other comorbid diagnosis and history of noncompliance, substance abuse, feel that just aspirin therapy should be adequate. A 2D echo has been ordered to further risk stratify this patient. Altered mental status: Most likely related to substance and drug abuse. COPD: Patient seems to have a significant COPD problem. Tobacco dependency: Patient has been advised to quit smoking. - Time Time Spent: 30 to 50 Minutes - CODE STATUS was discussed, patient remains full code. Surrogate decision-maker unchanged. Multiple medical problems were addressed. More than 50% of the time spent coordinating care, discussing management plans with involved caregivers. Management plans discussed with involved personnels. Medical decision making was of moderate to high complexity , patient's has multiple comorbidities. Medications reviewed and adjusted accordingly: Yes
[2017-01-18] MEDS ORDERED: INFLUENZA ADLT QUAD (36MOS+) 2017-18 VAC 0.5 ML SYR IM PRN (13:11)
--- NOTE | 2017-01-18 14:00 | RADIOLOGY REPORT (SQ) ---
EXAM DESCRIPTION: CTA CHEST COMPLETED DATE/TIME: 01/18/2017 1:16 pm REASON FOR STUDY: new onset a-fib COMPARISON: CT angio chest 02/24/2015, 02/14/2015 Chest film 01/17/2017 TECHNIQUE: CT scan of the chest performed using helical scanning technique with dynamic intravenous contrast injection. Images reviewed with lung, soft tissue and bone windows. Reconstructed coronal and sagittal MPR images reviewed. Additional 3 dimensional post-processing performed to develop Maximal Intensity Projection images (MT P). All images stored on PACS. All CT scanners at this facility use dose modulation, iterative reconstruction, and/or weight based d osing when appropriate to reduce radiation dose to as low as reasonably achievable (ALARA). [facility]: Dose Right [facility]: CareDose [facility]: Dose Right [facility]: Teradose 4D [facility]: TMAT CONTRAST TYPE AND DOSE: contrast/concentration: Isovue 370.00 mg/ml; Total Contrast Delivered: 58.0 ml; Total Saline Delivered: 84.2 ml Contrast bolus optimized for the pulmonary arteries. Not diagnostic for the aorta. RENAL FUNCTION: Creatinine 0.73 RADIATION DOSE: Up-to-date CT equipment and radiation dose reduction techniques were employed. CTDIv ol: 5.1 - 9.4 mGy. DLP: 202 mGy-cm. . LIMITATIONS: None. FINDINGS: LUNGS AND PLEURA: No masses, infiltrates, pneumothorax. No pleural effusions, calcificati ons. Hyperinflation and hyperlucency at both upper lobes from obstructive disease. Bandlike scarrin g posterior right lung apex in an area of dense consolidation seen in 2015. AORTA AND GREAT VESSELS: No aneurysm. Contrast bolus not optimized for the aorta. HEART: No pericardial effusion. No significant coronary artery calcifications. PULMONARY ARTERIES: No emboli visualized in the main pulmonary arteries or the segmental branches. HILAR AND MEDIASTINAL STRUCTURES: No identified masses or abnormal nodes. HARDWARE: None in the chest. UPPER ABDOMEN: No significant findings. Limited exam. THYROID AND OTHER SOFT TISSUES: No masses. No adenopathy. BONES: No acute or significant finding. 3D MIPS: Confirm above findings. OTHER: No other significant finding. IMPRESSION: No CT angio evidence of acute pulmonary emboli COMMENT: Quality ID # [id number]: Final reports with documentation of one or more dose reduction techniques (e.g., Automated exposure control, adjustment of the mA and/or kV according to patient size, use of iterative reconstruction technique) TECHNICAL DOCUMENTATION: JOB ID: [id number] [employer]- All Rights Reserved
[2017-01-18] MEDS ORDERED: DULOXETINE HCL 30 MG CAPSULE.DR PO ONE ×2 (15:00)
--- NOTE | 2017-01-18 18:05 | RADIOLOGY REPORT (SQ) ---
EXAM DESCRIPTION: MRI HEAD WITHOUT COMPLETED DATE/TIME: 01/18/2017 5:52 pm REASON FOR STUDY: anisocoria, RLE weakness, concern for cva, AMS COMPARISON: Head CT from 01/17/2017 TECHNIQUE: Multiplanar imaging includes non-contrasted T1, T2, FLAIR, and Diffusion with ADC map seq uences. Images stored on PACS. LIMITATIONS: None. FINDINGS: ANATOMY: No anomalies. Normal vascular flow voids. Pituitary fossa normal. CSF SPACES: Normal in size and contour. No hemorrhage. CEREBRUM: A few high-signal intensity lesions scattered throughout the white matter on FLAIR imaging with distribution suggesting chronic micro-vascular ischemic change. Sulci and gyri normal in size a nd contour. No evidence of hemorrhage, mass or extraaxial fluid collection. POSTERIOR FOSSA: No signal alteration. No hemorrhage. No edema, masses or mass effect. Internal bibi tory canals, cerebello-pontine angles, mastoids normal. DIFFUSION: Negative for acute or sub-acute infarction. ORBITS: No masses. Globes normal. PARANASAL SINUSES: No fluid levels. Mucosa normal. OTHER: No other significant finding. IMPRESSION: MINIMAL MICROVASCULAR ISCHEMIC CHANGE. OTHERWISE NORMAL STUDY. EVIDENCE OF ACUTE STROKE: NO. TECHNICAL DOCUMENTATION: JOB ID: [id number] [employer]- All Rights Reserved
[2017-01-18] MEDS ORDERED: METOPROLOL SUCCINATE 25 MG TAB.SR.24H PO SCH (19:00)
--- NOTE | 2017-01-18 19:01 | PDOC PROGRESS REPORT ---
Subjective Progress Note for:: 01/18/17 Subjective:: Patient is still quite confused and I see her. Patient seen earlier today on morning rounds. Patient denies chest pain, shortness of breath, abdominal pain , nausea, vomiting, fevers, chills, diarrhea, constipation, headache, new onset weakness. Physical Exam Vital Signs: Temp Pulse Resp BP Pulse Ox 97.7 F 92 18 130/80 H 100 01/18/17 12:00 01/18/17 15:54 01/18/17 15:54 01/18/17 15:54 01/18/17 15:54 Intake & Output 01/17/17 01/18/17 01/19/17 06:59 06:59 06:59 Intake Total 2584 Output Total 900 Balance -900 2584 Weight 58.3 kg Exam: General: Awake alert and oriented x2, no acute respiratory distress HEENT: AT/NC, PRRL-mild anisocoria, EOMI, oropharynx is moist, pink, no scleral icterus, no conjunctival injection Neck: No JVD, trachea midline Chest: Clear to auscultation bilaterally, no wheezes rhonchi or rales CV: IRR, 2/6 sm Abdomen: Soft, nontender to palpation, nondistended, active bowel sounds; no rebound, rigidity, or guarding Extremities: No cyanosis, clubbing or edema Neuro: Cranial nerves II through XII are grossly intact without focal deficits; awake alert and oriented x2 Psych: Normal mood and affect Results Laboratory Results: 01/18/17 05:40 01/18/17 05:40 01/17/17 01/17/17 01/17/17 22:10 22:10 22:10 WBC RBC Hgb Hct MCV MCH MCHC RDW Plt Count Seg Neutrophils % Lymphocytes % Monocytes % Eosinophils % Basophils % Absolute Neutrophils Absolute Lymphocytes Absolute Monocytes Absolute Eosinophils Absolute Basophils VBG pH VBG pCO2 VBG HCO3 VBG Base Excess Sodium Potassium Chloride Carbon Dioxide Anion Gap BUN Creatinine Est GFR ( Amer) Est GFR (Non-Af Amer) Glucose Lactic Acid 0.7 Calcium Magnesium 1.9 Total Bilirubin AST ALT Alkaline Phosphatase Ammonia Total Protein Albumin TSH 0.22 L Free T4 Free T3 pg/mL 01/17/17 01/17/17 01/18/17 22:10 22:10 01:14 WBC RBC Hgb Hct MCV MCH MCHC RDW Plt Count Seg Neutrophils % Lymphocytes % Monocytes % Eosinophils % Basophils % Absolute Neutrophils Absolute Lymphocytes Absolute Monocytes Absolute Eosinophils Absolute Basophils VBG pH 7.28 L VBG pCO2 50.3 VBG HCO3 22.9 VBG Base Excess -4.3 Sodium Potassium Chloride Carbon Dioxide Anion Gap BUN Creatinine Est GFR ( Amer) Est GFR (Non-Af Amer) Glucose Lactic Acid Calcium Magnesium Total Bilirubin AST ALT Alkaline Phosphatase Ammonia < 8.7 L Total Protein Albumin TSH Free T4 1.58 Free T3 pg/mL 3.12 01/18/17 01/18/17 01/18/17 05:40 05:40 05:40 WBC 13.0 H RBC 4.10 Hgb 12.5 D Hct 36.7 MCV 90 MCH 30.4 MCHC 33.9 RDW 12.8 Plt Count 290 Seg Neutrophils % 71.2 Lymphocytes % 18.7 Monocytes % 7.2 Eosinophils % 1.7 Basophils % 1.2 Absolute Neutrophils 9.2 H Absolute Lymphocytes 2.4 Absolute Monocytes 0.9 Absolute Eosinophils 0.2 Absolute Basophils 0.2 VBG pH 7.31 VBG pCO2 42.4 VBG HCO3 20.9 VBG Base Excess -5.1 Sodium 143.6 Potassium 3.8 Chloride 114 H Carbon Dioxide 18 L Anion Gap 12 BUN 11 Creatinine 0.73 Est GFR ( Amer) > 60 Est GFR (Non-Af Amer) > 60 Glucose 85 Lactic Acid Calcium 8.9 Magnesium Total Bilirubin 0.4 AST 13 L ALT 25 Alkaline Phosphatase 95 Ammonia Total Protein 5.7 L Albumin 3.3 L TSH Free T4 Free T3 pg/mL 01/18/17 05:40 WBC RBC Hgb Hct MCV MCH MCHC RDW Plt Count Seg Neutrophils % Lymphocytes % Monocytes % Eosinophils % Basophils % Absolute Neutrophils Absolute Lymphocytes Absolute Monocytes Absolute Eosinophils Absolute Basophils VBG pH VBG pCO2 VBG HCO3 VBG Base Excess Sodium Potassium Chloride Carbon Dioxide Anion Gap BUN Creatinine Est GFR ( Amer) Est GFR (Non-Af Amer) Glucose Lactic Acid Calcium Magnesium 1.9 Total Bilirubin AST ALT Alkaline Phosphatase Ammonia Total Protein Albumin TSH Free T4 Free T3 pg/mL 01/18/17 01/18/17 01:14 05:40 Troponin I < 0.012 0.012 Impressions: Chest X-Ray 01/17/17 16:07 IMPRESSION: NO ACUTE RADIOGRAPHIC FINDING IN THE CHEST. Head CT 01/17/17 16:07 IMPRESSION: No acute intracranial findings. EVIDENCE OF ACUTE STROKE: NO. Chest/Abdomen CTA 01/18/17 00:00 IMPRESSION: No CT angio evidence of acute pulmonary emboli Head MRI 01/18/17 00:00 IMPRESSION: MINIMAL MICROVASCULAR ISCHEMIC CHANGE. OTHERWISE NORMAL STUDY. EVIDENCE OF ACUTE STROKE: NO. Assessment & Plan - Diagnosis (1) Sepsis Qualifiers: Sepsis type: sepsis due to unspecified organism Qualified Code(s): A41.9 - Sepsis, unspecified organism Is this a current diagnosis for this admission?: Yes Plan: Patient with sepsis present on admission with white count of 20, heart rate greater than 90, secondary to COPD exacerbation. Continue to rule out other causes of sepsis. (2) COPD exacerbation Is this a current diagnosis for this admission?: Yes Plan: Place on site Medrol 40 mg IV every 8 and continue with Unasyn nebulized treatments as needed (3) Acute encephalopathy Is this a current diagnosis for this admission?: Yes Plan: Likely secondary to polypharmacy, and review of patient's medications that are reconciled, I find it hard to believe these are patient's only medications as I see my prior transfer summary for this patient approximately 2 years ago. (4) Atrial fibrillation with RVR Is this a current diagnosis for this admission?: Yes Plan: Patient on Cardizem drip and will attempt to transition her to oral (5) Tobacco dependency Is this a current diagnosis for this admission?: Yes Plan: Nicotine patch as needed
[2017-01-18] MEDS: METOPROLOL SUCCINATE 25 MG TAB.SR.24H PO SCH (22:22)
[2017-01-18] MEDS: METHYLPREDNISOLONE INJ 40 MG/1 ML SDV IV SCH (22:22)
[2017-01-18] MEDS: DILTIAZEM HCL 180 MG CAPSULE.CR PO SCH (22:22)
[2017-01-19] MEDS: AMPICILLIN SODIUM/SULBACTAM NA 3 GM in NORMAL SALINE 100 ML IV SCH ×2 (00:34→05:54)
[2017-01-19] MEDS ORDERED: ACETAMINOPHEN 325 MG TABLET PO PRN (01:03)
[2017-01-19] MEDS: METHYLPREDNISOLONE INJ 40 MG/1 ML SDV IV SCH (05:54)
[2017-01-19 08:36] LABS: ABSOLUTE BASOPHILS # (AUTO) 0.1 10^3/uL (0.0-0.2); ABSOLUTE LYMPHOCYTES (AUTO) 0.9 10^3/uL (0.5-4.7); ABSOLUTE NEUT (AUTO) 4.7 10^3/uL (1.7-8.2); BASOPHILS % (AUTO) 1.3 % (0-2); HEMOGLOBIN 11.9 g/dL (12.0-15.5); HGB HCT DIFFERENCE 0.7; LYMPHOCYTES % (AUTO) 15.6 % (13-45); MEAN CORPUSCULAR HEMOGLOBIN 30.1 pg (27.0-33.4); MEAN CORPUSCULAR VOLUME 89 fl (80-97); MONOCYTES % (AUTO) 0.5 % (3-13); RED BLOOD COUNT 3.96 10^6/uL (3.72-5.28); RED CELL DISTRIBUTION WIDTH 13.3 % (11.5-14.0); SEGMENTED NEUTROPHILS % (AUTO) 82.6 % (42-78); WHITE BLOOD COUNT 5.7 10^3/uL (4.0-10.5)
[2017-01-19 08:56] LABS: ANION GAP 11 (5-19); BLOOD UREA NITROGEN 4 mg/dL (7-20); CALCIUM 9.6 mg/dL (8.4-10.2); CARBON DIOXIDE 22 mmol/L (22-30); CHLORIDE 108 mmol/L (98-107); CREATININE RESULT 0.52 mg/dL (0.52-1.25); GLUCOSE 172 mg/dL (75-110); POTASSIUM 3.4 mmol/L (3.6-5.0); SODIUM 141.3 mmol/L (137-145)
[2017-01-19] MEDS ORDERED: POTASSIUM CHLORIDE 10 MEQ TABLET.SA PO ONE (09:15)
[2017-01-19] MEDS ORDERED: HALOPERIDOL LACTATE INJ 5 MG/1 ML VIAL IV PRN (09:18)
[2017-01-19] MEDS ORDERED: CYCLOBENZAPRINE HCL 10 MG TABLET PO PRN (09:20)
--- NOTE | 2017-01-19 09:36 | XCELERA REPORT ---
[address] [address] Transthoracic Echocardiogram Report Name: HUA CAVANAUGH Age: 61 yrs Gender: Female : 1955 Patient Status: Inpatient Patient Location: ICU^1^A Study Date: 01/18/2017 10:27 AM Height: 67 in Weight: 128 lb BSA: 1.7 m2 Procedure: A complete two-dimensional transthoracic echocardiogram was performed (2D, M-mode, spectral and color flow Doppler). The study was technically difficult with many images being suboptimal in quality. Reason For Study: resp distress Ordering Physician: MEGAN LOPEZ Performed By: Sonia Dickson Interpretation Summary The left ventricular ejection fraction is normal. There is mild concentric left ventricular hypertrophy. Doppler measurements suggest pseudonormalized left ventricular relaxation, which is associated with grade II/IV or mild to moderate diastolic dysfunction The left ventricle is grossly normal size. Not all wall segments were well visualized. The right ventricular systolic function is normal. The right atrium is normal in size The left atrium is borderline dilated. There is a trace to mild amount of mitral regurgitation There is no mitral valve stenosis. There is a moderate amount of aortic regurgitation There is no aortic valve stenosis There is a mild amount of tricuspid regurgitation There is mild pulmonary hypertension by echo Right ventricular systolic pressure is estimated to be elevated at 30- 40mmHg. The aortic root is not well visualized but is probably normal size. The inferior vena cava appeared normal and decreased > 50% with respiration (RAP 5-10 mmHg) Minimal pericardial effusion. MMode/2D Measurements & Calculations RVDd: 2.2 cm LVIDd: 4.5 cm FS: 37.6 % Ao root diam: 3.2 cm IVSd: 0.97 cm LVIDs: 2.8 cm EDV(Teich): 90.8 ml LVPWd: 1.00 cmESV(Teich): 29.1 ml Ao root area: 8.2 cm2 EF(Teich): 67.9 % LA dimension: 3.5 cm LVOT diam: 1.9 cm LVOT area: 2.9 cm2 Doppler Measurements & Calculations MV E max amairani: MV P1/2t max amairani: Ao V2 max: AI max amairani: 92.8 cm/sec 92.8 cm/sec 188.5 cm/sec 464.8 cm/sec MV A max amairani: MV P1/2t: 67.1 msec Ao max PG: AI max P.6 cm/sec MVA(P1/2t): 3.3 cm2 14.2 mmHg 86.4 mmHg MV E/A: 0.84 MV dec slope: CALI(V,D): 2.3 cm2 AI dec slope: 405.2 cm/sec2 328.3 cm/sec2 AI P1/2t: 414.7 msec LV V1 max PG: PA V2 max: TR max amairani: 8.9 mmHg 83.9 cm/sec 281.1 cm/sec LV V1 max: PA max P.8 mmHg TR max P.1 cm/sec 31.6 mmHg Left Ventricle The left ventricle is grossly normal size. There is mild concentric left ventricular hypertrophy. The left ventricular ejection fraction is normal. Doppler measurements suggest pseudonormalized left ventricular relaxation, which is associated with grade II/IV or mild to moderate diastolic dysfunction. Not all wall segments were well visualized. Right Ventricle The right ventricle is grossly normal size. There is normal right ventricular wall thickness. The right ventricular systolic function is normal. Atria The right atrium is normal in size. The left atrium is borderline dilated. Interarterial septum not well visualized and not well dopplered. Cannot comment on ASD/PFO presence. Mitral Valve The mitral valve leaflets are sclerotic, but show no functional abnormalities. There is no mitral valve stenosis. There is a trace to mild amount of mitral regurgitation. Aortic Valve The aortic valve is not well visualized secondary to technical limitations. There is no aortic valve stenosis. There is a moderate amount of aortic regurgitation. Tricuspid Valve The tricuspid valve is not well visualized, but is grossly normal. There is no tricuspid stenosis. There is a mild amount of tricuspid regurgitation. There is mild pulmonary hypertension by echo. Right ventricular systolic pressure is estimated to be elevated at 30-40mmHg. Pulmonic Valve The pulmonic valve is not well visualized. Great Vessels The aortic root is not well visualized but is probably normal size. The inferior vena cava appeared normal and decreased > 50% with respiration (RAP 5-10 mmHg). Effusions Minimal pericardial effusion. : MEGAN LOPEZ > Megan Lopez
[2017-01-19] MEDS ORDERED: DULOXETINE HCL 30 MG CAPSULE.DR PO SCH ×2 (10:00)
[2017-01-19] MEDS ORDERED: DIVALPROEX SODIUM 500 MG TAB.SR.24H PO ONE (10:00)
[2017-01-19] MEDS: NICOTINE 21 MG/24 HR PATCH.TD24 TD SCH (10:57)
[2017-01-19] MEDS: METOPROLOL SUCCINATE 25 MG TAB.SR.24H PO SCH ×2 (11:01→22:07)
[2017-01-19] MEDS: THIAMINE HCL 100 MG TABLET PO SCH (11:03)
[2017-01-19] MEDS: FLUOXETINE HCL 20 MG CAPSULE PO SCH (11:03)
[2017-01-19] MEDS: MAGNESIUM OXIDE 400 MG TABLET PO SCH ×2 (11:04→17:39)
[2017-01-19] MEDS: ENOXAPARIN SODIUM INJ 60 MG/0.6 ML DISP.SYRIN SUBCUT SCH ×2 (11:04→22:06)
[2017-01-19] MEDS: DILTIAZEM HCL 180 MG CAPSULE.CR PO SCH ×2 (11:06→22:07)
[2017-01-19] MEDS: PREDNISONE 20 MG TABLET PO SCH ×2 (11:07→17:39)
--- NOTE | 2017-01-19 11:21 | PDOC PROGRESS REPORT ---
Subjective Progress Note for:: 01/19/17 Subjective:: Patient seems to be doing better and is showing some improvement in general status. Patient however has been noted to be confused. Patient is not noted to have any chest arm or neck discomfort. Patient not noted to have or describing any PND, orthopnea.. Patient not noted to have fever chills. Patient does not seem to be in any other significant discomfort. Patient is maintaining sinus rhythm, frequent APCs noted. System review: No significant changes Medications reviewed. Physical Exam Vital Signs: Temp Pulse Resp BP Pulse Ox 97.9 F 86 20 158/82 H 97 01/19/17 05:03 01/19/17 08:00 01/19/17 08:00 01/19/17 08:00 01/19/17 08:00 Intake & Output 01/18/17 01/19/17 01/20/17 06:59 06:59 06:59 Intake Total 3484 Output Total 900 750 Balance -900 2734 Weight 58.3 kg Exam: GENERAL: well-nourished and in no acute distress. Alert and oriented x3. Patient noted to be intermittently confused by the nurses. HEAD: Atraumatic, normocephalic. EYES: Pupils equal round and reactive to light, extraocular movements intact, sclera anicteric, conjunctiva are normal. ENT: TMs normal, nares patent, oropharynx clear without exudates. Moist mucous membranes. No oral ulcerations or bleeding gums noted NECK: supple without lymphadenopathy. Trachea is central. No cervical or axillary lymphadenopathy noted. Carotids are 2+, JVD WNL LUNGS: Respiration seems nonlabored, no significant accessory muscle action noted. Breath sounds clear to auscultation bilaterally and equal noted. No wheezes rales or rhonchi noted. No significant dullness noted on percussion. CHEST: Palpation of the chest wall shows no significant chest wall tenderness. No other significant abnormalities noted. HEART: [facility], No PSH, 1/6 VANESSA aortic area, 1/6 [place] systolic murmur mitral area, no rubs, no gallops. ABDOMEN: Soft, no significant tenderness appreciated, normoactive bowel sounds. No guarding, no rebound. No rigidity noted . No masses appreciated. EXTREMITIES: Pedal pulses are 1-2+, no calf tenderness noted. No clubbing or cyanosis.trace to 1+ pedal edema noted NEUROLOGICAL: Focused neurological exam showed no significant neurologic deficit. Normal speech, no focal weakness appreciated. PSYCH: Normal mood, normal affect. Judgment and insight within normal limits. SKIN: No significant ecchymosis, rash, ulcerations or signs of pruritus noted. MUSCULOSKELETAL EXAM: No significant joint swelling noted. Results Laboratory Results: 01/19/17 08:24 01/19/17 08:24 01/19/17 01/19/17 01/19/17 08:24 08:24 08:24 WBC 5.7 RBC 3.96 Hgb 11.9 L Hct 35.0 L MCV 89 MCH 30.1 MCHC 34.0 RDW 13.3 Plt Count 299 Seg Neutrophils % 82.6 H Lymphocytes % 15.6 Monocytes % 0.5 L Eosinophils % 0.0 Basophils % 1.3 Absolute Neutrophils 4.7 Absolute Lymphocytes 0.9 Absolute Monocytes 0.0 L Absolute Eosinophils 0.0 Absolute Basophils 0.1 Sodium 141.3 Potassium 3.4 L Chloride 108 H Carbon Dioxide 22 Anion Gap 11 BUN 4 L Creatinine 0.52 Est GFR ( Amer) > 60 Est GFR (Non-Af Amer) > 60 Glucose 172 H Calcium 9.6 Ammonia 12.1 01/18/17 01/18/17 01:14 05:40 Troponin I < 0.012 0.012 EKG Comments: EKG strip shows sinus rhythm with frequent APCs at times. Impressions: Chest X-Ray 01/17/17 16:07 IMPRESSION: NO ACUTE RADIOGRAPHIC FINDING IN THE CHEST. Head CT 01/17/17 16:07 IMPRESSION: No acute intracranial findings. EVIDENCE OF ACUTE STROKE: NO. Chest/Abdomen CTA 01/18/17 00:00 IMPRESSION: No CT angio evidence of acute pulmonary emboli Head MRI 01/18/17 00:00 IMPRESSION: MINIMAL MICROVASCULAR ISCHEMIC CHANGE. OTHERWISE NORMAL STUDY. EVIDENCE OF ACUTE STROKE: NO. Assessment & Plan - Diagnosis (1) Atrial fibrillation with RVR Is this a current diagnosis for this admission?: Yes (2) Altered mental status, unspecified Qualifiers: Altered mental status type: unspecified Qualified Code(s): R41.82 - Altered mental status, unspecified Is this a current diagnosis for this admission?: Yes (3) COPD (chronic obstructive pulmonary disease) with emphysema Qualifiers: Emphysema type: unspecified Qualified Code(s): J43.9 - Emphysema, unspecified (4) Tobacco dependency Is this a current diagnosis for this admission?: Yes - Notes Notes: Atrial fibrillation with rapid ventricular response: This was noted on presentation. Currently patient in sinus rhythm. Continue Cardizem therapy. 2D echo shows relatively well-preserved LVEF. Therefore in view of patient's other comorbid diagnosis and history of noncompliance, substance abuse, feel that just aspirin therapy should be adequate. Altered mental status: Most likely related to substance and drug abuse. Further evaluation may be indicated. COPD: Patient seems to have a significant COPD problem. Tobacco dependency: Patient has been advised to quit smoking. - Time Time with patient: Greater than 35 minutes - CODE STATUS was discussed, patient remains full code. Surrogate decision-maker unchanged. Multiple medical problems were addressed. More than 50% of the time spent coordinating care, discussing management plans with involved caregivers. Management plans discussed with involved personnels. Medical decision making was of moderate to high complexity, patient's has multiple comorbidities. Medications reviewed and adjusted accordingly: Yes
[2017-01-19] MEDS: AMOXICILLIN TR/POT CLAVULANATE 500-125 MG TAB PO SCH ×2 (14:29→22:06)
--- NOTE | 2017-01-19 15:30 | PDOC PROGRESS REPORT ---
Subjective Progress Note for:: 01/19/17 Subjective:: Patient seen earlier today on morning rounds. Patient denies chest pain, shortness of breath, abdominal pain, nausea, vomiting , fevers, chills, diarrhea, constipation, headache, new onset weakness. Patient is quite tearful, and while oriented to person, place, and time patient exhibits some quite unusual thinking and appears to be functionally impaired. Patient adamantly denies drinking or using drugs prior to admission. She reports her psychiatric provider has recently decreased her Cymbalta as she did not tolerate high doses of this. It seems as this corresponded to a change in her mood. Physical Exam Vital Signs: Temp Pulse Resp BP Pulse Ox 97.9 F 86 20 158/82 H 97 01/19/17 05:03 01/19/17 12:00 01/19/17 12:00 01/19/17 12:00 01/19/17 12:00 Intake & Output 01/18/17 01/19/17 01/20/17 06:59 06:59 06:59 Intake Total 3484 Output Total 900 750 Balance -900 2734 Weight 58.3 kg Exam: General: Awake alert and oriented x3, no acute respiratory distress HEENT: AT/NC, PRRL-mild anisocoria, EOMI, oropharynx is moist, pink, no scleral icterus, no conjunctival injection Neck: No JVD, trachea midline Chest: Clear to auscultation bilaterally, no wheezes rhonchi or rales CV: RRR, 2/6 sm Abdomen: Soft, nontender to palpation, nondistended, active bowel sounds; no rebound, rigidity, or guarding Extremities: No cyanosis, clubbing or edema Neuro: Cranial nerves II through XII are grossly intact without focal deficits; awake alert and oriented x3 Psych: Extremely labile, tearful, unusual affect, depressed mood Results Laboratory Results: 01/19/17 08:24 01/19/17 08:24 01/19/17 01/19/17 01/19/17 08:24 08:24 08:24 WBC 5.7 RBC 3.96 Hgb 11.9 L Hct 35.0 L MCV 89 MCH 30.1 MCHC 34.0 RDW 13.3 Plt Count 299 Seg Neutrophils % 82.6 H Lymphocytes % 15.6 Monocytes % 0.5 L Eosinophils % 0.0 Basophils % 1.3 Absolute Neutrophils 4.7 Absolute Lymphocytes 0.9 Absolute Monocytes 0.0 L Absolute Eosinophils 0.0 Absolute Basophils 0.1 Sodium 141.3 Potassium 3.4 L Chloride 108 H Carbon Dioxide 22 Anion Gap 11 BUN 4 L Creatinine 0.52 Est GFR ( Amer) > 60 Est GFR (Non-Af Amer) > 60 Glucose 172 H Calcium 9.6 Magnesium Ammonia 12.1 01/19/17 08:24 WBC RBC Hgb Hct MCV MCH MCHC RDW Plt Count Seg Neutrophils % Lymphocytes % Monocytes % Eosinophils % Basophils % Absolute Neutrophils Absolute Lymphocytes Absolute Monocytes Absolute Eosinophils Absolute Basophils Sodium Potassium Chloride Carbon Dioxide Anion Gap BUN Creatinine Est GFR ( Amer) Est GFR (Non-Af Amer) Glucose Calcium Magnesium 1.8 Ammonia 01/18/17 01/18/17 01:14 05:40 Troponin I < 0.012 0.012 Impressions: Chest X-Ray 01/17/17 16:07 IMPRESSION: NO ACUTE RADIOGRAPHIC FINDING IN THE CHEST. Head CT 01/17/17 16:07 IMPRESSION: No acute intracranial findings. EVIDENCE OF ACUTE STROKE: NO. Chest/Abdomen CTA 01/18/17 00:00 IMPRESSION: No CT angio evidence of acute pulmonary emboli Head MRI 01/18/17 00:00 IMPRESSION: MINIMAL MICROVASCULAR ISCHEMIC CHANGE. OTHERWISE NORMAL STUDY. EVIDENCE OF ACUTE STROKE: NO. Assessment & Plan - Diagnosis (1) Sepsis Qualifiers: Sepsis type: sepsis due to unspecified organism Qualified Code(s): A41.9 - Sepsis, unspecified organism Is this a current diagnosis for this admission?: Yes Plan: Patient with sepsis present on admission with white count of 20, heart rate greater than 90, secondary to COPD exacerbation/aspiration pneumonia. (2) COPD exacerbation Is this a current diagnosis for this admission?: Yes Plan: Transition patient to oral prednisone and Augmentin. Continue scheduled nebulized treatments. Concern for aspiration pneumonia. Concern also that steroids may be causing minor psychosis. (3) Acute encephalopathy Is this a current diagnosis for this admission?: Yes Plan: At this time, I suspect that this is multifactorial due to underlying mental illness, medication withdrawal, sepsis. Will consult psychology for their interpretation of this. (4) Atrial fibrillation with RVR Is this a current diagnosis for this admission?: Yes Plan: Patient doing well on Cardizem and metoprolol. Continue Lovenox. Have physical therapy evaluate patient for ambulation before deciding on anticoagulation (5) Tobacco dependency Is this a current diagnosis for this admission?: Yes Plan: Nicotine patch as needed (6) Bipolar disorder (manic depression) Qualifiers: Active/Remission status: currently active Current bipolar episode type: mixed Current episode severity: moderate Qualified Code(s): F31.62 - Bipolar disorder, current episode mixed, moderate Is this a current diagnosis for this admission?: Yes Plan: Patient appears to have bipolar disorder and I feel this is likely why she did not do well with Cymbalta. Will place patient on Depakote and p.m. Risperdal and Prozac. As needed Haldol. Consult psychology - Time Time Spent with patient: 35 or more minutes Medications reviewed and adjusted accordingly: Yes
[2017-01-19] MEDS: DIVALPROEX SODIUM 500 MG TAB.SR.24H PO SCH (17:39)
[2017-01-19] MEDS ORDERED: RISPERIDONE 1 MG TABLET PO SCH (22:00)
[2017-01-20] MEDS: AMOXICILLIN TR/POT CLAVULANATE 500-125 MG TAB PO SCH ×2 (05:53→11:34)
[2017-01-20 08:25] LABS: ANION GAP 13 (5-19); BLOOD UREA NITROGEN 7 mg/dL (7-20); CALCIUM 9.5 mg/dL (8.4-10.2); CARBON DIOXIDE 23 mmol/L (22-30); CHLORIDE 106 mmol/L (98-107); CREATININE RESULT 0.52 mg/dL (0.52-1.25); GLUCOSE 121 mg/dL (75-110); SODIUM 141.7 mmol/L (137-145)
[2017-01-20] MEDS: NICOTINE 21 MG/24 HR PATCH.TD24 TD SCH (09:38)
[2017-01-20] MEDS: DIVALPROEX SODIUM 500 MG TAB.SR.24H PO SCH (09:39)
[2017-01-20] MEDS: MAGNESIUM OXIDE 400 MG TABLET PO SCH (09:40)
[2017-01-20] MEDS: THIAMINE HCL 100 MG TABLET PO SCH (09:41)
[2017-01-20] MEDS: METOPROLOL SUCCINATE 25 MG TAB.SR.24H PO SCH (09:41)
[2017-01-20] MEDS: FLUOXETINE HCL 20 MG CAPSULE PO SCH (09:42)
[2017-01-20] MEDS: PREDNISONE 20 MG TABLET PO SCH (09:42)
[2017-01-20] MEDS: DILTIAZEM HCL 180 MG CAPSULE.CR PO SCH (09:42)
[2017-01-20] MEDS: ENOXAPARIN SODIUM INJ 60 MG/0.6 ML DISP.SYRIN SUBCUT SCH (09:43)
[2017-01-20] MEDS ORDERED: OXYCODONE-ACETAMINOPHEN 5-325 MG TABLET PO PRN (10:43)
[2017-01-20] MEDS ORDERED: OXYCODONE HCL IR 5 MG TABLET PO PRN (10:44)
--- NOTE | 2017-01-20 11:22 | PSYCHOLOGICAL NOTE ---
Psych Note - Psych Note Psych Note: Reviewed patient's medical record in preparation for evaluation. Per Hospitalist , consult no longer needed.
[2017-01-20 14:03] VITALS: BP 120/68
--- NOTE | 2017-01-20 14:38 | PDOC DISCHARGE SUMMARY ---
General - Admit/Disc Date/PCP Admission Date/Primary Care Provider: 01/17/17 21:26 GRETTA GREY MD Discharge Date: 01/20/17 - Discharge Diagnosis (1) Sepsis Is this a current diagnosis for this admission?: Yes (2) COPD exacerbation Is this a current diagnosis for this admission?: Yes (3) Acute encephalopathy Is this a current diagnosis for this admission?: Yes (4) Atrial fibrillation with RVR Is this a current diagnosis for this admission?: Yes (5) Tobacco dependency Is this a current diagnosis for this admission?: Yes (6) Bipolar disorder (manic depression) Is this a current diagnosis for this admission?: Yes (7) Chronic prescription opiate use Is this a current diagnosis for this admission?: Yes (8) Adverse drug reaction Is this a current diagnosis for this admission?: Yes (9) Falls frequently Is this a current diagnosis for this admission?: Yes - Additional Information Resuscitation Status: Full Code Discharge Diet: Regular Discharge Activity: Activity As Tolerated Home Medications: Cyclobenzaprine HCl [Flexeril 10 mg Tablet] 10 mg PO TID 01/18/17 Ibuprofen [Motrin 800 mg Tablet] 800 mg PO BID 01/18/17 Albuterol Sulfate [Ventolin HFA MDI 18 GM] 1 - 2 puff IH Q4H PRN #1 mdi Amoxicillin/Potassium Clav [Augmentin 875-125 Tablet] 1 each PO BID #14 tablet 01/20/17 Diltiazem HCl [Cardizem Cd 180 mg Capsule] 180 mg PO Q12 #60 capsule.cr Divalproex Sodium [Depakote ER 500 mg Tab.sr] 500 mg PO BID #60 tab.sr.24h 01/20 Fluoxetine HCl [Prozac 20 mg Capsule] 20 mg PO DAILY #30 capsule 01/20/17 Metoprolol Succinate 100 mg PO Q12 #60 tab.er.24h 01/20/17 Prednisone [Deltasone 20 mg Tablet] 20 mg PO BID #10 tablet 01/20/17 Risperidone [Risperdal 1 mg Tablet] 1 mg PO QHS #30 tablet 01/20/17 History of Present Illness History of Present Illness: Please see H&P for full HPI. Hospital Course Hospital Course: Patient is a 61-year-old female with a history of atrial fib with RVR , COPD, chronic opiate dependence, hypertension, and a prior history of alcohol abuse who presented with altered mental status. Patient was initially placed in the ICU for her A. fib with RVR. CTA was performed which revealed no PE. this improved with the reinitiation of metoprolol and Cardizem. Patient spontaneously converted to sinus rhythm. Patient appeared to do better with increased doses of metoprolol. Due to patient's unsteadiness on her feet as she does walk with a walker and has had multiple falls patient is felt to be high risk for bleed and anticoagulation was not continued for this patient. Patient met sepsis criteria but grew out no pathogens and this was felt to be secondary to her COPD exacerbation. Patient COPD exacerbation was treated with Solu-Medrol and Unasyn which was transitioned to oral. On 01/18/2017 patient underwent MRI for evaluation for possible CVA due to her alteration in mentation , but this was negative. Patient's alteration in mentation improved, but her mood appeared to be significantly altered. Patient had a very labile mood that was characterized by anxiety, suspiciousness, depressive state at alternating with agitation. Patient then revealed that she had previously been on Cymbalta did not do well with this and was being taken off of this medication. At this time, I started patient on Depakote twice daily, Risperdal nightly, and Prozac. Patient's mood dramatically improved the following day and she was felt to be safe for discharge home. Home health was set up for this patient. I discussed this with her sister who agreed to look and after her for a few days. Patient was discharged in stable condition. Physical Exam Vital Signs: Temp Pulse Resp BP Pulse Ox 98.1 F 74 18 120/68 93 01/20/17 13:57 01/20/17 13:57 01/20/17 13:57 01/20/17 13:57 01/20/17 13:57 Intake & Output 01/19/17 01/20/17 01/21/17 06:59 06:59 06:59 Intake Total 3484 1975 Output Total 750 300 Balance 2734 1675 Exam: General: Awake alert and oriented x3, no acute respiratory distress HEENT: AT/NC, PRRL-mild anisocoria, EOMI, oropharynx is moist, pink, no scleral icterus, no conjunctival injection Neck: No JVD, trachea midline Chest: Clear to auscultation bilaterally, no wheezes rhonchi or rales CV: RRR, 2/6 sm Abdomen: Soft, nontender to palpation, nondistended, active bowel sounds; no rebound, rigidity, or guarding Extremities: No cyanosis, clubbing or edema Neuro: Cranial nerves II through XII are grossly intact without focal deficits; awake alert and oriented x3 Psych: Usual affect, normal mood Results Laboratory Results: 01/19/17 08:24 01/20/17 07:55 01/20/17 07:55 Sodium 141.7 Potassium 4.0 Chloride 106 Carbon Dioxide 23 Anion Gap 13 BUN 7 Creatinine 0.52 Est GFR ( Amer) > 60 Est GFR (Non-Af Amer) > 60 Glucose 121 H Calcium 9.5 01/18/17 01/18/17 01:14 05:40 Troponin I < 0.012 0.012 Impressions: Chest X-Ray 01/17/17 16:07 IMPRESSION: NO ACUTE RADIOGRAPHIC FINDING IN THE CHEST. Head CT 01/17/17 16:07 IMPRESSION: No acute intracranial findings. EVIDENCE OF ACUTE STROKE: NO. Chest/Abdomen CTA 01/18/17 00:00 IMPRESSION: No CT angio evidence of acute pulmonary emboli Head MRI 01/18/17 00:00 IMPRESSION: MINIMAL MICROVASCULAR ISCHEMIC CHANGE. OTHERWISE NORMAL STUDY. EVIDENCE OF ACUTE STROKE: NO. Qualifiers PATEINT BEING DISCHARGED WITH ANY OF THE FOLLOWING DIAGNOSIS?: No Plan Time Spent: Less than 30 Minutes
--- NOTE | 2017-01-20 15:54 | PDOC PROGRESS REPORT ---
Subjective Progress Note for:: 01/20/17 Subjective:: Patient seems to be doing better and is showing some improvement in general status. Patient today appears alert and oriented 3. Patient is not noted to have any chest arm or neck discomfort. Patient not noted to have or describing any PND, orthopnea.. Patient not noted to have fever chills. Patient does not seem to be in any other significant discomfort. Patient is maintaining sinus rhythm, frequent APCs noted. System review: No significant changes Medications reviewed. Physical Exam Vital Signs: Temp Pulse Resp BP Pulse Ox 98.1 F 74 18 120/68 93 01/20/17 13:57 01/20/17 13:57 01/20/17 13:57 01/20/17 13:57 01/20/17 13:57 Intake & Output 01/19/17 01/20/17 01/21/17 06:59 06:59 06:59 Intake Total 3484 1975 Output Total 750 300 Balance 2734 1675 Exam: GENERAL: well-nourished and in no acute distress. Alert and oriented x3 HEAD: Atraumatic, normocephalic. EYES: Pupils equal round and reactive to light, extraocular movements intact, sclera anicteric, conjunctiva are normal. ENT: TMs normal, nares patent, oropharynx clear without exudates. Moist mucous membranes. No oral ulcerations or bleeding gums noted NECK: supple without lymphadenopathy. Trachea is central. No cervical or axillary lymphadenopathy noted. Carotids are 2+, JVD WNL LUNGS: Respiration seems nonlabored, no significant accessory muscle action noted. Breath sounds clear to auscultation bilaterally and equal noted. No wheezes rales or rhonchi noted. No significant dullness noted on percussion. CHEST: Palpation of the chest wall shows no significant chest wall tenderness. No other significant abnormalities noted. HEART: [place] [employer], No PSH, 1/6 VANESSA aortic area, 1/6 [place] systolic murmur mitral area, no rubs, no gallops. ABDOMEN: Soft, no significant tenderness appreciated, normoactive bowel sounds. No guarding, no rebound. No rigidity noted . No masses appreciated. EXTREMITIES: Pedal pulses are 1-2+, no calf tenderness noted. No clubbing or cyanosis.trace to 1+ pedal edema noted NEUROLOGICAL: Focused neurological exam showed no significant neurologic deficit. Normal speech, no focal weakness appreciated. PSYCH: Normal mood, normal affect. Judgment and insight within normal limits. SKIN: No significant ecchymosis, rash, ulcerations or signs of pruritus noted. MUSCULOSKELETAL EXAM: No significant joint swelling noted. Results Laboratory Results: 01/19/17 08:24 01/20/17 07:55 01/20/17 07:55 Sodium 141.7 Potassium 4.0 Chloride 106 Carbon Dioxide 23 Anion Gap 13 BUN 7 Creatinine 0.52 Est GFR ( Amer) > 60 Est GFR (Non-Af Amer) > 60 Glucose 121 H Calcium 9.5 01/18/17 01/18/17 01:14 05:40 Troponin I < 0.012 0.012 EKG Comments: Telemetry strips reviewed showed sinus rhythm. Occasional APCs and VPCs are noted. Impressions: Chest X-Ray 01/17/17 16:07 IMPRESSION: NO ACUTE RADIOGRAPHIC FINDING IN THE CHEST. Head CT 01/17/17 16:07 IMPRESSION: No acute intracranial findings. EVIDENCE OF ACUTE STROKE: NO. Chest/Abdomen CTA 01/18/17 00:00 IMPRESSION: No CT angio evidence of acute pulmonary emboli Head MRI 01/18/17 00:00 IMPRESSION: MINIMAL MICROVASCULAR ISCHEMIC CHANGE. OTHERWISE NORMAL STUDY. EVIDENCE OF ACUTE STROKE: NO. Assessment & Plan - Diagnosis (1) Atrial fibrillation with RVR Is this a current diagnosis for this admission?: Yes (2) Altered mental status, unspecified Qualifiers: Altered mental status type: unspecified Qualified Code(s): R41.82 - Altered mental status, unspecified Is this a current diagnosis for this admission?: Yes (3) COPD (chronic obstructive pulmonary disease) with emphysema Qualifiers: Emphysema type: unspecified Qualified Code(s): J43.9 - Emphysema, unspecified (4) Tobacco dependency Is this a current diagnosis for this admission?: Yes - Notes Notes: Atrial fibrillation with rapid ventricular response: This was noted on presentation. Currently patient in sinus rhythm. Continue Cardizem therapy. 2D echo shows relatively well-preserved LVEF. Therefore in view of patient's other comorbid diagnosis and history of noncompliance, substance abuse, feel that just aspirin therapy should be adequate. Patient offered follow-up appointment with me. Precipitation of atrial fibrillation could be related to metabolic problems from drug abuse. Altered mental status: Most likely related to substance and drug abuse. This has improved.. COPD: Patient seems to have a significant COPD problem. Tobacco dependency: Patient has been advised to quit smoking. - Time Time with patient: 15-25 minutes - CODE STATUS was discussed, patient remains full code. Multiple medical problems were addressed. More than 50% of the time spent coordinating care, discussing management plans with involved caregivers. Management plans discussed with involved personnels. Medical decision making was of moderate to high complexity, patient's has multiple comorbidities. Medications reviewed and adjusted accordingly: Yes
--- NOTE | 2017-01-20 16:54 | EKG REPORT ---
SEVERITY:- ABNORMAL ECG - SINUS RHYTHM SUPRAVENTRICULAR BIGEMINY PROBABLE LEFT ATRIAL ABNORMALITY : Confirmed by: Dena Castanon MD 20-Jan-2017 16:54:17
== END 2017-01-20 14:53 | disposition home or self-care (01) | DRG 190 ==
LOC: ER 15:56 → UNDOADMIN 19:58 → EH 19:58 → ICU 01-18 00:34 → 3N 01-18 12:58
PROVIDERS: ADMIT Family Medicine; ATTEND Family Medicine
PROC: 3E0F73Z Introduction of Anti-inflammatory into Respiratory Tract, Via Natural or Artificial Opening (ICD-10-PCS; principal; 2017-01-18)
DX: J44.1 Chronic obstructive pulmonary disease with (acute) exacerbation (principal); G92 Toxic encephalopathy; E87.2 Acidosis; I48.91 Unspecified atrial fibrillation; T43.215A Adverse effect of selective serotonin and norepinephrine reuptake inhibitors, initial encounter; M21.372 Foot drop, left foot; M21.371 Foot drop, right foot; F17.210 Nicotine dependence, cigarettes, uncomplicated; I10 Essential (primary) hypertension; F31.9 Bipolar disorder, unspecified; F41.1 Generalized anxiety disorder; K21.9 Gastro-esophageal reflux disease without esophagitis; R29.6 Repeated falls; Z79.891 Long term (current) use of opiate analgesic; Z79.899 Other long term (current) drug therapy; Z91.19 Patient's noncompliance with other medical treatment and regimen; F14.21 Cocaine dependence, in remission; Z82.49 Family history of ischemic heart disease and other diseases of the circulatory system; Z83.3 Family history of diabetes mellitus
CPT/HCPCS: 36415; 70450; 70551; 71010; 71275; 80048; 80053; 80307; 81001; 82140; 82550; 82803; 82962; 83605; 83735; 84439; 84443; 84481; 84484; 85025; 85610; 87040; 90715; 93005; 93010; 93306; 94799; 99291; J0295; J0360; J1644; J1650; J2920; J3411; J3475; J3490; J7030; J7512; S0028

== ENCOUNTER 2017-02-25 16:23 | Inpatient (IN) | payer MEDICAID ==
--- NOTE | 2017-02-25 17:34 | ER Document Report ---
ED Medical Screen (RME) - General Chief Complaint: Breathing Difficulty Stated Complaint: SHORTNESS OF BREATH Time Seen by Provider: 02/25/17 17:28 Notes: pt has low oxygen. She states she is recently discharged from the hospital with ammonia. She states that they stated they were going to send her home with oxygen but her oxygen was normal on the last day so she did not get sent home with it. She states that she feels no different today than she has a last for 5 days. However today her oxygen was low when it was measured by her home health nurse. Oxygen saturations were low here at triage. Patient denies any new cough cold or congestion over the last several days. Patient denies any previous history of blood clots. She states she has been diagnosed with congestive heart failure and her legs have been swelling since she was sent home from the hospital. She states the swelling has been equal on both sides. TRAVEL OUTSIDE OF THE [place] IN LAST 30 DAYS: No - Related Data Allergies/Adverse Reactions: lorazepam [From Ativan] Adverse Reaction (Mild, Verified 02/25/17 16:32) Past Medical History - Past Medical History Cardiac Medical History: Reports: Hx Atrial Fibrillation - History of, February 2015, Hx Congestive Heart Failure - History of during her hospital stay for pneumonia 2 years ago., Hx Hypertension Denies: Hx DVT, Hx Heart Attack, Hx Hypercholesterolemia, Hx Pulmonary Embolism Pulmonary Medical History: Reports: Hx COPD - Recent Dx Denies: Hx Asthma, Hx Sleep Apnea Neurological Medical History: Denies: Hx Seizures Endocrine Medical History: Denies: Hx Diabetes Mellitus Type 1, Hx Diabetes Mellitus Type 2, Hx Hyperthyroidism, Hx Hypothyroidism Renal/ Medical History: Denies: Hx Peritoneal Dialysis GI Medical History: Reports: Hx Gastroesophageal Reflux Disease. Denies: Hx Cirrhosis, Hx Hepatitis Musculoskeltal Medical History: Denies Hx Arthritis Psychiatric Medical History: Reports: Hx Depression Infectious Medical History: Denies: Hx Hepatitis - Immunizations Hx Diphtheria, Pertussis, Tetanus Vaccination: Yes History of Influenza Vaccine for 01/2017 - 06/2017 Season: Unknown Physical Exam - Vital signs Vitals: Temp Pulse Resp BP Pulse Ox 97.7 F 65 16 122/65 90 L 02/25/17 16:34 02/25/17 16:34 02/25/17 16:34 02/25/17 16:34 02/25/17 16:34 Course - Vital Signs Vital signs: Temp Pulse Resp BP Pulse Ox 97.7 F 65 16 122/65 100 02/25/17 16:34 02/25/17 16:34 02/25/17 16:34 02/25/17 16:34 02/25/17 17:29
--- NOTE | 2017-02-25 18:03 | RADIOLOGY REPORT (SQ) ---
EXAM DESCRIPTION: CHEST SINGLE VIEW COMPLETED DATE/TIME: 02/25/2017 5:54 pm REASON FOR STUDY: hypoxia COMPARISON: 01/17/2017 EXAM PARAMETERS: NUMBER OF VIEWS: One view. TECHNIQUE: Single frontal radiographic view of the chest acquired. RADIATION DOSE: NA LIMITATIONS: None. FINDINGS: LUNGS AND PLEURA: Patchy bibasilar opacities. No effusions. MEDIASTINUM AND HILAR STRUCTURES: No masses. Contour normal. HEART AND VASCULAR STRUCTURES: Heart normal in size. Normal vasculature. BONES: No acute findings. HARDWARE: None in the chest. OTHER: No other significant finding. IMPRESSION: Bibasilar pneumonia. TECHNICAL DOCUMENTATION: JOB ID: [id number] [employer]- All Rights Reserved
[2017-02-25 18:43] LABS: ABSOLUTE BASOPHILS # (AUTO) 0.1 10^3/uL (0.0-0.2); ABSOLUTE EOSINOPHILS # (AUTO) 0.4 10^3/uL (0.0-0.6); ABSOLUTE LYMPHOCYTES (AUTO) 2.2 10^3/uL (0.5-4.7); ABSOLUTE MONOCYTES (AUTO) 0.5 10^3/uL (0.1-1.4); ABSOLUTE NEUT (AUTO) 2.4 10^3/uL (1.7-8.2); BASOPHILS % (AUTO) 1.3 % (0-2); HEMATOCRIT 25.8 % (36.0-47.0); HEMOGLOBIN 8.8 g/dL (12.0-15.5); HGB HCT DIFFERENCE 0.6; LYMPHOCYTES % (AUTO) 38.3 % (13-45); MEAN CORPUSCULAR HEMOGLOBIN 30.1 pg (27.0-33.4); MEAN CORPUSCULAR HGB CONC 34.1 g/dL (32.0-36.0); MEAN CORPUSCULAR VOLUME 88 fl (80-97); MONOCYTES % (AUTO) 9.7 % (3-13); RED BLOOD COUNT 2.93 10^6/uL (3.72-5.28); RED CELL DISTRIBUTION WIDTH 14.7 % (11.5-14.0); SEGMENTED NEUTROPHILS % (AUTO) 42.7 % (42-78); WHITE BLOOD COUNT 5.6 10^3/uL (4.0-10.5)
[2017-02-25 19:06] LABS: ALANINE AMINOTRANSFERASE 29 U/L (9-52); ALBUMIN 2.5 g/dL (3.5-5.0); ALKALINE PHOSPHATASE 104 U/L (38-126); ANION GAP 5 (5-19); ASPARTATE AMINO TRANSFERASE 24 U/L (14-36); BILIRUBIN,DIRECT 0.4 mg/dL (0.0-0.4); BILIRUBIN,TOTAL 0.4 mg/dL (0.2-1.3); BLOOD UREA NITROGEN 12 mg/dL (7-20); CALCIUM 8.1 mg/dL (8.4-10.2); CARBON DIOXIDE 30 mmol/L (22-30); CHLORIDE 102 mmol/L (98-107); CREATININE RESULT 1.03 mg/dL (0.52-1.25); GLUCOSE 89 mg/dL (75-110); POTASSIUM 4.7 mmol/L (3.6-5.0); SODIUM 137.3 mmol/L (137-145)
[2017-02-25] MEDS ORDERED: FUROSEMIDE INJ/PF 40 MG/4 ML SDV IV ONE (19:17)
--- NOTE | 2017-02-25 19:20 | ER Document Report ---
ED General - General Chief Complaint: Breathing Difficulty Stated Complaint: SHORTNESS OF BREATH Time Seen by Provider: 02/25/17 17:28 Notes: Patient is a 61-year-old female with a past medical history of CHF, recently hospitalized for sepsis in the setting of pneumonia requiring intubation and ICU stay who presents with concerns of hypoxemia. Patient states that her home nurse came to her house today and checked her pulse oximetry and found it to be 88%. Patient states she does not have any additional symptoms although does admit that she occasionally feels dyspneic and easily fatigued. She has also noted bilateral lower extremity edema somewhat worse than the right. She does not normally have edema at baseline. She does note that she was started on 20 mg of furosemide daily at time of discharge. Nothing seems to improve or worsen her symptoms. She does not have a baseline oxygen requirement. She has not seen a primary care doctor regarding her recent hospitalization or today's concerns. TRAVEL OUTSIDE OF THE [place] IN LAST 30 DAYS: No - Related Data Allergies/Adverse Reactions: lorazepam [From Ativan] Adverse Reaction (Mild, Verified 02/25/17 16:32) Past Medical History - General Information source: Patient - Social History Smoking Status: Never Smoker Chew tobacco use (# tins/day): No Frequency of alcohol use: None Drug Abuse: None Lives with: Family Family History: CAD, Hyperlipidemia, Hypertension Patient has suicidal ideation: No Patient has homicidal ideation: No - Past Medical History Cardiac Medical History: Reports: Hx Atrial Fibrillation - History of, February 2015, Hx Congestive Heart Failure - History of during her hospital stay for pneumonia 2 years ago., Hx Hypertension Denies: Hx DVT, Hx Heart Attack, Hx Hypercholesterolemia, Hx Pulmonary Embolism Pulmonary Medical History: Reports: Hx COPD - Recent Dx Denies: Hx Asthma, Hx Sleep Apnea Neurological Medical History: Denies: Hx Seizures Endocrine Medical History: Denies: Hx Diabetes Mellitus Type 1, Hx Diabetes Mellitus Type 2, Hx Hyperthyroidism, Hx Hypothyroidism Renal/ Medical History: Denies: Hx Peritoneal Dialysis GI Medical History: Reports: Hx Gastroesophageal Reflux Disease. Denies: Hx Cirrhosis, Hx Hepatitis Musculoskeltal Medical History: Denies Hx Arthritis Psychiatric Medical History: Reports: Hx Depression Infectious Medical History: Denies: Hx Hepatitis Surgical Hx: Other - Immunizations Hx Diphtheria, Pertussis, Tetanus Vaccination: Yes Review of Systems - Review of Systems Notes: Constitutional: Negative for fever. HENT: Negative for sore throat. Eyes: Negative for visual changes. Cardiovascular: Negative for chest pain. Respiratory: Negative for shortness of breath. Gastrointestinal: Negative for abdominal pain, vomiting or diarrhea. Genitourinary: Negative for dysuria. Musculoskeletal: Negative for back pain. Skin: Negative for rash. Neurological: Negative for headaches, weakness or numbness. 10 point ROS negative except as marked above and in HPI. Physical Exam - Vital signs Vitals: Temp Pulse Resp BP Pulse Ox 97.7 F 65 16 122/65 90 L 02/25/17 16:34 02/25/17 16:34 02/25/17 16:34 02/25/17 16:34 02/25/17 16:34 Interpretation: Hypoxic Notes: PHYSICAL EXAMINATION: GENERAL: Well-appearing, well-nourished and in no acute distress. HEAD: Atraumatic, normocephalic. EYES: Pupils equal round and reactive to light, extraocular movements intact, sclera anicteric, conjunctiva are normal. ENT: nares patent, oropharynx clear without exudates. Moist mucous membranes. NECK: Normal range of motion, supple without lymphadenopathy LUNGS: Diminished breath sounds at the bases bilaterally. HEART: Regular rate and rhythm without murmurs ABDOMEN: Soft, nontender, normoactive bowel sounds. No guarding, no rebound. No masses appreciated. EXTREMITIES: Normal range of motion, 4+ pitting edema bilaterally worse on the right NEUROLOGICAL: No focal neurological deficits. Moves all extremities spontaneously and on command. PSYCH: Normal mood, normal affect. SKIN: Warm, Dry, normal turgor, no rashes or lesions noted. Course - Re-evaluation Re-evalutation: 02/25/17 19:19 Patient presents with what appears to be bilateral lower pulmonary edema on chest x-ray as opposed to a radiology read of bilateral pneumonia which is not clinically consistent with her presentation. Patient actually had a 9 kg weight gain between her time of admission on 02/04 and her time of discharge on 02/16 likely secondary to receiving an aggressive amount of IV fluids in appropriate care for her sepsis secondary to pneumonia. Patient overall is very well in appearance and her vitals are all within normal limits with exception of hypoxemia. I did shut off the patient's nasal cannula oxygen at bedside on initial assessment. In less than 1 minute patient did desaturate down to 89% on room air just lying in the bed. She does have 4+ pitting edema in the bilateral lower extremities which is not normal for her. Apparently time of discharge she was restarted on furosemide 20 mg daily. Although patient is well in appearance and her proBNP is less elevated than her time of presentation, her ongoing hypoxemia and oxygen dependence is a barrier to discharge. Will start on IV Lasix and request admission - Vital Signs Vital signs: Temp Pulse Resp BP Pulse Ox 97.7 F 65 16 122/65 100 02/25/17 16:34 02/25/17 16:34 02/25/17 16:34 02/25/17 16:34 02/25/17 17:29 - Laboratory Result Diagrams: 02/25/17 18:11 02/25/17 18:11 Laboratory results interpreted by me: 02/25/17 02/25/17 02/25/17 18:11 18:11 18:11 RBC 2.93 L Hgb 8.8 L Hct 25.8 L RDW 14.7 H Eosinophils % 8.0 H Est GFR (Non-Af Amer) 55 L Calcium 8.1 L Creatine Kinase NT-Pro-B Natriuret Pep 2230 H Total Protein 5.0 L Albumin 2.5 L 02/25/17 18:11 RBC Hgb Hct RDW Eosinophils % Est GFR (Non-Af Amer) Calcium Creatine Kinase < 20 L NT-Pro-B Natriuret Pep Total Protein Albumin - Diagnostic Test Radiology reviewed: Image reviewed, Reports reviewed Radiology results interpreted by me: 02/25/17 20:37 Chest x-ray: Bilateral basilar pulmonary edema Discharge - Discharge Clinical Impression: Hypoxemia Pulmonary edema Qualifiers: Chronicity: acute Qualified Code(s): J81.0 - Acute pulmonary edema Condition: Fair Disposition: ADMITTED INPATIENT Admitting Provider: Hospitalist - [facility] Admitted: Telemetry
--- NOTE | 2017-02-25 19:30 | RADIOLOGY REPORT (SQ) ---
EXAM DESCRIPTION: VENOUS BILATERAL LOWER COMPLETED DATE/TIME: 02/25/2017 7:04 pm REASON FOR STUDY: bilat leg swelling/hypoxia COMPARISON: None. TECHNIQUE: Dynamic and static shin scale and color images acquired of both lower extremity venous sy stems. Selected spectral images acquired with additional compression and augmentation maneuvers. Imag es stored on PACS. LIMITATIONS: None. FINDINGS: RIGHT LEG COMMON FEMORAL AND FEMORAL: Normal phasicity, compression and augmentation. No visualized echogenic m aterial on shin scale. No defects on color images. POPLITEAL: Normal compression and augmentation. No visualized echogenic material on shin scale. No de fects on color images. CALF VESSELS: Normal compression and augmentation. No visualized echogenic material on shin scale. No defects on color image. GSV AND SSV: Normal compression. No visualized echogenic material on shin scale. No defects on color images. ANY DEEP VENOUS INSUFFICIENCY: Not evaluated. ANY EVIDENCE OF POPLITEAL CYST: No. OTHER: No other significant finding. LEFT LEG COMMON FEMORAL AND FEMORAL: Normal phasicity, compression and augmentation. No visualized echogenic m aterial on shin scale. No defects on color images. POPLITEAL: Normal compression and augmentation. No visualized echogenic material on shin scale. No de fects on color images. CALF VESSELS: Normal compression and augmentation. No visualized echogenic material on shin scale. No defects on color images. GSV AND SSV: Normal compression. No visualized echogenic material on shin scale. No defects on color images. ANY DEEP VENOUS INSUFFICIENCY: Not evaluated. ANY EVIDENCE POPLITEAL CYST: No. OTHER: No other significant finding. IMPRESSION: NO EVIDENCE DVT OR SVT IN EITHER LEG. TECHNICAL DOCUMENTATION: JOB ID: [id number] [employer]- All Rights Reserved
[2017-02-25] MEDS ORDERED: MAG HYDROX/AL HYDROX/SIMETH SUSP 30 ML UDCUP PO PRN (19:49)
[2017-02-25 20:24] LABS: MAGNESIUM 1.8 mg/dL (1.6-2.3)
[2017-02-25 20:25] LABS: CREATINE KINASE < 20 U/L (30-135)
[2017-02-25] MEDS ORDERED: HEPARIN SODIUM,PORCINE/D5W 25,000 UNIT/250 ML RTUINJ IV PRN (20:26)
[2017-02-25] MEDS ORDERED: HEPARIN SOD (PORCINE) 1,000 UNIT/ML 10 ML VIAL IV PRN (20:26)
[2017-02-25] MEDS: BUDESONIDE NEB 0.5 MG/2 ML AMPUL NEB SCH (20:34)
[2017-02-25 20:36] LABS: CREATINE KINASE MB 0.92 ng/mL (<4.55)
[2017-02-25 20:40] LABS: TROPONIN I 0.066 ng/mL
[2017-02-25] MEDS ORDERED: NICOTINE 7 MG/24 HR PATCH.TD24 TD ONE (21:30)
[2017-02-25] MEDS ORDERED: DILTIAZEM HCL 180 MG CAPSULE.CR PO SCH (22:00)
[2017-02-25] MEDS ORDERED: (PENDING PHARMACY ID) (Diltiazem Hcl [Cartia Xt] 180 MG) PO SCH (22:00)
[2017-02-25 22:30] LABS: STAIN REACTIVITY CHECK ACCEPTABLE
[2017-02-25 23:27] LABS: FOLATE 4.84 ng/mL (>2.76)
[2017-02-26] MEDS ORDERED: VANCOMYCIN HCL 250 MG PO SCH
[2017-02-26] MEDS ORDERED: VANCOMYCIN HCL INJ 500 MG VIAL ONE ×2 (00:43→02:38)
[2017-02-26] MEDS ORDERED: OLANZAPINE 2.5 MG TABLET ONE (00:43)
[2017-02-26] MEDS: HEPARIN SOD (PORCINE) 5,000 UNIT/ML 1 ML SYRINGE SUBCUT SCH ×4 (00:44→22:16)
[2017-02-26] MEDS: FUROSEMIDE INJ/PF 40 MG/4 ML SDV IV SCH ×2 (00:45→10:29)
[2017-02-26] MEDS: GABAPENTIN 300 MG CAPSULE PO SCH ×3 (00:45→22:15)
[2017-02-26] MEDS: OLANZAPINE 2.5 MG TABLET PO SCH ×3 (00:56→22:14)
[2017-02-26] MEDS: VANCOMYCIN HCL INJ 500 MG VIAL PO SCH ×4 (00:56→18:18)
[2017-02-26 01:42] LABS: CREATINE KINASE MB 0.8 ng/mL (<4.55); TROPONIN I 0.052 ng/mL
[2017-02-26] MEDS ORDERED: OXYCODONE HCL IR 5 MG TABLET PO PRN (02:35)
[2017-02-26] MEDS ORDERED: ACETAMINOPHEN 325 MG TABLET PO PRN (02:35)
--- NOTE | 2017-02-26 06:14 | PDOC H&P ---
History of Present Illness Admission Date/PCP: 02/25/17 20:16 AMIRA NOBLES MD Patient complains of: Shortness of breath and leg swelling History of Present Illness: HUA CAVANAUGH is a 61 year old female with a past medical history of atrial fibrillation, COPD, bipolar depression, moderate mitral and aortic regurgitation , recent pneumonia and C. difficile colitis discharged from [facility] 6 days ago. Follow-up nursing visits address lower extremity edema and shortness of breath she is found to have oxygen saturations in the mid 80s without baseline oxygen requirement and +4 lower extremity edema and is referred to the emergency room for evaluation. In the emergency room department she is found to have a weight gain of 10 kg and elevated BNP. She started on IV Lasix and referred to the hospitalist for admission. Patient admits orthopnea though denies chest pain, palpitations, nausea vomiting. She is otherwise compliant with her medication regimen post discharge including vancomycin 250 mg p.o. every 6 hours. Past Medical History Cardiac Medical History: Reports: Atrial Fibrillation - History of, February 2015, Congestive Heart Failure - History of during her hospital stay for pneumonia 2 years ago., Hypertension Denies: DVT, Myocardial Infarction, Hyperlipidema, Pulmonary Embolism Pulmonary Medical History: Reports: Chronic Obstructive Pulmonary Disease (COPD ) - Recent Dx Denies: Asthma, Sleep Apnea Neurological Medical History: Denies: Seizures Endocrine Medical History: Denies: Diabetes Mellitus Type 1, Diabetes Mellitus Type 2, Hyperthyroidism, Hypothyroidism GI Medical History: Reports: Gastroesophageal Reflux Disease Denies: Cirrhosis, Hepatitis Musculoskeltal Medical History: Denies: Arthritis Psychiatric Medical History: Reports: Depression Infectious Medical History: Reports: Clostridium Difficile, Other Social History Information Source: Patient, Emergency Med Personnel, [facility] Records Lives with: Family Smoking Status: Former Smoker Number of Years Smokin Last Time Smoked: 04/15/2015 Frequency of Alcohol Use: None Hx Recreational Drug Use: No Drugs: Cocaine - History of use, Marijuana - History of use, Other - Reportedly no illicit drug use since at least 2014 Hx Prescription Drug Abuse: No Family History Family History: CAD, Hyperlipidemia, Hypertension Parental Family History Reviewed: Yes Children Family History Reviewed: Yes Sibling(s) Family History Reviewed.: Yes Medication/Allergy Home Medications: Ibuprofen [Motrin 800 mg Tablet] 800 mg PO Q12HP PRN 01/18/17 Metoprolol Succinate 100 mg PO Q12 #60 tab.er.24h 01/20/17 Furosemide 20 mg PO DAILY 02/04/17 Gabapentin 300 mg PO Q12 02/04/17 Potassium Chloride [Klor-Con M20] 20 meq PO Q12 02/04/17 Budesonide [Pulmicort Neb 0.5 mg/2 ml Ampul] 0.5 mg NEB RTQ12 #60 ampul.neb 10/29 Diltiazem HCl [Cartia Xt] 180 mg PO Q12 #60 cap.er.24h 02/19/17 Olanzapine [Zyprexa 2.5 mg Tablet] 2.5 mg PO Q12 #60 tablet 02/19/17 Vancomycin HCl 250 mg PO Q6 #56 capsule 02/19/17 Oxycodone HCl/Acetaminophen [Oxycodon-Acetaminophen 7.5-325] 1 tab PO Q8HP PRN 02/25/17 Allergies/Adverse Reactions: lorazepam [From Ativan] Adverse Reaction (Mild, Verified 02/25/17 16:32) Review of Systems Constitutional: PRESENT: as per HPI, fatigue, weakness, weight gain Eyes: ABSENT: visual disturbances Ears: ABSENT: hearing changes Cardiovascular: PRESENT: dyspnea on exertion, edema, orthropnea. ABSENT: chest pain, palpitations Respiratory: ABSENT: cough, hemoptysis Gastrointestinal: ABSENT: abdominal pain, constipation, diarrhea, hematemesis, hematochezia, nausea, vomiting Genitourinary: PRESENT: as per HPI Musculoskeletal: ABSENT: joint swelling Integumentary: ABSENT: rash, wounds Neurological: ABSENT: abnormal gait, abnormal speech, confusion, dizziness, focal weakness, syncope Psychiatric: ABSENT: anxiety, depression, homidical ideation, suicidal ideation Endocrine: ABSENT: cold intolerance, heat intolerance, polydipsia, polyuria Hematologic/Lymphatic: ABSENT: easy bleeding, easy bruising Physical Exam Vital Signs: Temp Pulse Resp BP Pulse Ox 97.4 F 71 17 110/65 96 02/25/17 23:57 02/26/17 02:00 02/25/17 23:57 02/25/17 23:57 02/26/17 00:00 Intake & Output 02/24/17 02/25/17 02/26/17 11:59 11:59 11:59 Intake Total 925 Output Total 2400 Balance -1475 General appearance: PRESENT: cooperative, mild distress Head exam: PRESENT: atraumatic, normocephalic Eye exam: PRESENT: conjunctiva pink, EOMI, PERRLA. ABSENT: scleral icterus Ear exam: PRESENT: normal external ear exam Mouth exam: PRESENT: moist, tongue midline Neck exam: ABSENT: carotid bruit, JVD, lymphadenopathy, thyromegaly Respiratory exam: PRESENT: accessory muscle use, clear to auscultation man, crackles, tachypnea. ABSENT: rales, rhonchi, wheezes Cardiovascular exam: PRESENT: diastolic murmur, gallop, irregular rhythm, +S1, + S2 Pulses: PRESENT: normal dorsalis pedis pul Vascular exam: PRESENT: normal capillary refill GI/Abdominal exam: PRESENT: normal bowel sounds, soft. ABSENT: distended, guarding, mass, organolmegaly, rebound, tenderness Rectal exam: PRESENT: deferred Extremities exam: PRESENT: +2 edema Neurological exam: PRESENT: alert, awake, oriented to person, oriented to place , oriented to time, oriented to situation, CN II-XII grossly intact. ABSENT: motor sensory deficit Psychiatric exam: PRESENT: appropriate affect, normal mood. ABSENT: homicidal ideation, suicidal ideation Skin exam: PRESENT: dry, intact, warm. ABSENT: cyanosis, rash Results Laboratory Results: 02/26/17 02/26/17 00:55 00:55 Creatine Kinase < 20 L CK-MB (CK-2) 0.80 Troponin I 0.052 Impressions: Chest X-Ray 02/25/17 17:30 IMPRESSION: Bibasilar pneumonia. Venous Doppler Study 02/25/17 17:30 IMPRESSION: NO EVIDENCE DVT OR SVT IN EITHER LEG. Assessment & Plan - Diagnosis (1) Pulmonary edema Qualifiers: Chronicity: acute Qualified Code(s): J81.0 - Acute pulmonary edema Is this a current diagnosis for this admission?: Yes Plan: Volume overload complicated by moderate mitral and aortic regurgitation. Admission to a monitored bed for IV Lasix as needed BiPAP, cardiology consult and education. (2) Hypoxemia Is this a current diagnosis for this admission?: Yes Plan: Multifactorial secondary to pulmonary edema and anemia. Supplemental oxygen as needed BiPAP and diuresis. Anemia evaluation pending consider transfusion. (3) Atrial fibrillation Is this a current diagnosis for this admission?: No Plan: Currently in sinus rhythm (4) C. difficile colitis Is this a current diagnosis for this admission?: Yes Plan: Asymptomatic, continue vancomycin p.o. day 7 of 21. (5) Anemia Is this a current diagnosis for this admission?: Yes Plan: Multifactorial somewhat dilutional given 10 kg weight gain however will evaluate for, iron deficiency and occult blood. Transfusion as needed - Time Time Spent: 50 to 70 Minutes - Inpatient Certification Medical Necessity: Need Close Monitoring Due to Risk of Patient Decompensation
[2017-02-26] MEDS ORDERED: IRON SUCROSE COMPLEX INJ/PF 100 MG/5 ML SDV IV ONE (06:15)
[2017-02-26 08:07] LABS: ABSOLUTE BASOPHILS # (AUTO) 0.1 10^3/uL (0.0-0.2); ABSOLUTE EOSINOPHILS # (AUTO) 0.4 10^3/uL (0.0-0.6); ABSOLUTE LYMPHOCYTES (AUTO) 2.1 10^3/uL (0.5-4.7); ABSOLUTE MONOCYTES (AUTO) 0.4 10^3/uL (0.1-1.4); BASOPHILS % (AUTO) 1.1 % (0-2); EOSINOPHILS % (AUTO) 7.1 % (0-6); HEMATOCRIT 22.4 % (36.0-47.0); HGB HCT DIFFERENCE 0.7; LYMPHOCYTES % (AUTO) 42.7 % (13-45); MEAN CORPUSCULAR HEMOGLOBIN 30.3 pg (27.0-33.4); MEAN CORPUSCULAR HGB CONC 34.5 g/dL (32.0-36.0); MEAN CORPUSCULAR VOLUME 88 fl (80-97); MONOCYTES % (AUTO) 8.5 % (3-13); RED BLOOD COUNT 2.56 10^6/uL (3.72-5.28); RED CELL DISTRIBUTION WIDTH 14.6 % (11.5-14.0); SEGMENTED NEUTROPHILS % (AUTO) 40.6 % (42-78)
[2017-02-26 08:24] LABS: HEMOGLOBIN 7.7 g/dL (12.0-15.5)
[2017-02-26] MEDS: BUDESONIDE NEB 0.5 MG/2 ML AMPUL NEB SCH ×2 (08:28→19:48)
[2017-02-26 08:34] LABS: CREATINE KINASE MB 0.4 ng/mL (<4.55); TROPONIN I 0.04 ng/mL
[2017-02-26] MEDS: NICOTINE 7 MG/24 HR PATCH.TD24 TD SCH (10:28)
[2017-02-26] MEDS: IRON POLYSACCHARIDES COMPLEX 150 MG CAPSULE PO SCH (10:28)
[2017-02-26] MEDS: NITROGLYCERIN 5 MG (0.2 MG/HR) PATCH.TD24 TD SCH (10:28)
[2017-02-26] MEDS: DOCUSATE SODIUM 100 MG CAPSULE PO SCH (10:28)
[2017-02-26] MEDS ORDERED: (PENDING PHARMACY ID) (Metoprolol Succinate [Metoprolol Succinate] 100 MG) PO SCH ×2 (10:30→22:00)
[2017-02-26] MEDS ORDERED: (PENDING PHARMACY ID) (Oxycodone Hcl/Acetaminophen [Oxycodon-Acetaminophen 7.5-325] 1 TAB) PO PRN (10:30)
--- NOTE | 2017-02-26 10:30 | Progress Note ---
Provider Note Provider Note: AFSHAN SEQUEIRA Search Criteria: Last Name Adolfo' and First Name 'Hua' and = '[birth year] ' and Request Period = '08/30/16' to 02/26/17' - 5 out of 5 Recipients Selected. Fill Date Product, Str, Form Qty Days Pt ID Prescriber Written RX# N/R* Pharm MED+ ------ ---- --------- --- ------- ----- --------- ------ 02/19/2017 OXYCODON-ACETAMINOPHEN 7.5-325 10.00 4 [id number] 02/19/2017 [id number] N [id number] 28.13 01/20/2017 OXYCODON-ACETAMINOPHEN 7.5-325 90.00 30 [id number] 2016 [id number] N [id number] 33.75 12/19/2016 LUNESTA 2 MG TABLET 60.00 30 [id number] 12/10/2016 [id number] N [id number] 00.0 12/18/2016 OXYCODON-ACETAMINOPHEN 7.5-325 90.00 30 [id number] 2016 [id number] N [id number] 33.75 11/19/2016 LUNESTA 2 MG TABLET 60.00 30 [id number] 11/12/2016 [id number] N [id number] 00.0 11/19/2016 OXYCODON-ACETAMINOPHEN 7.5-325 90.00 30 [id number] 2016 [id number] N [id number] 33.75 10/22/2016 OXYCODON-ACETAMINOPHEN 7.5-325 90.00 30 [id number] 2016 [id number] N [id number] 33.75 10/15/2016 ZOLPIDEM TARTRATE 10 MG TABLET 30.00 30 [id number] 2016 [id number] N [id number] 00.0 09/26/2016 OXYCODONE-ACETAMINOPHEN 5-325 90.00 30 [id number] 09/26/2016 [id number] N [id number] 22.5 09/17/2016 ZOLPIDEM TARTRATE 10 MG TABLET 30.00 30 [id number] 2016 [id number] N [id number] 00.0 [id number] ANDREAS WILL MD; [facility], [address] [facility],[place] [address] [id number] MARGE CULLEN N; [employer], [facility] [place] [address] [id number] PARAD[facility] LUCAS; [address] [place] [id number] Pharmacies that dispensed prescriptions listed [id number] [facility] [phone]; [address] [place] [address], Patients that match search criteria [id number] AFSHAN SEQUEIRA, [facility] 56; [address] [address] [id number] AFSHAN SEQUEIRA, [facility] 56; [address] [address] [id number] AFSHAN SEQUEIRA, [facility] 56; [address] [place] [address] [id number] AFSHAN SEQUEIRA, [facility] 56; [address] [address] [id number] [facility] HUA, [facility] 56; [address] [facility] [place] [address]
[2017-02-26] MEDS ORDERED: DILTIAZEM HCL 180 MG CAPSULE.CR PO ONE (11:00)
[2017-02-26] MEDS ORDERED: LACTOBACILLUS ACIDOPHILUS 250 MG TAB PO ONE (11:00)
[2017-02-26] MEDS ORDERED: METOPROLOL SUCCINATE 50 MG TAB.SR.24H PO ONE (11:00)
[2017-02-26] MEDS: OXYCODONE-ACETAMINOPHEN 5-325 MG TABLET PO PRN ×2 (11:11→22:37)
--- NOTE | 2017-02-26 11:28 | PROGRESS NOTE E ---
Progress Note NAME: HUA CAVANAUGH : 1955 AGE: 61Y DATE: 02/26/2017 ROOM: 435 CHIEF COMPLAINT: Left leg pain. SUBJECTIVE: The patient is currently lying in bed. She states that she feels better today than when she came in. She denies any nausea, vomiting. No diarrhea, dizziness, chest pain. No fevers or chills. The patient does admit to some shortness of breath, but overall states that it is improved in comparison to admission. The patient has been afebrile. Her blood pressure has been in a good range. The patient does not voice any other concerns at this time. REVIEW OF SYSTEMS: Rest of review of systems is negative. MEDICATIONS: Medications have been reviewed. OBJECTIVE: GENERAL: The patient is a 61-year-old female who is awake, alert. She is oriented to person, place, time, and situation. She is verbal, conversational, does not appear to be in any acute distress. VITAL SIGNS: Temperature is 98.8, pulse 72, respirations 16, blood pressure is 106/62, oxygen saturation is 95% on 2 L nasal cannula. SKIN: Warm and dry. No rash. She is not diaphoretic. HEENT: Pupils equal, round, and reactive to light and accommodation. Conjunctiva is pink. Patient does have JVP to the right clavicle. CARDIOVASCULAR SYSTEM: Heart is regular. There is no murmur or rub. CHEST: Patient does have crackles noted throughout both lung evans. ABDOMEN: Soft, nontender, nondistended. Bowel sounds are present. EXTREMITIES: No clubbing, cyanosis. The patient does have 1+ bilateral lower extremity edema. PSYCHIATRIC: Appropriate affect, pleasant mood. DIAGNOSTICS: Lab values are as follows: Hematology obtained on 02/26/2017: WBCs are 5.0, hemoglobin is 9.7, hematocrit is 22.4, platelet count is 225,000. Chemistry obtained on 02/25/2017: Iron is 36, TIBC 197%, saturation is 19. Ferritin is 105. BNP is 2230. Albumin is 2.5. IMPRESSION AND PLAN: 1. CLOSTRIDIUM DIFFICILE COLITIS. The patient is on day 7 of 21 of Vancocin. Will also add probiotic therapy and continue. 2. MALNUTRITION, MOST LIKELY SECONDARY TO NUMBER 1, WHICH HAS CREATED A MALABSORPTION. Given the patient's extremely low albumin of 2.5 as well as an iron of 36, will encourage oral intake and high-protein diet and follow. 3. ACUTE ON CHRONIC DIASTOLIC CONGESTIVE HEART FAILURE. The patient does have right-sided heart failure as well. Given the patient appears to have third spacing type edema and low albumin as well, will transfuse albumin and administer Lasix and follow. 4. ANEMIA, POSSIBLY UNDERLYING CHRONIC DISEASE, BUT MOST LIKELY RELATED TO MALABSORPTION DUE TO IRON DEFICIENCY. Will continue to supplement and follow. 5. PAROXYSMAL ATRIAL FIBRILLATION. The patient is currently in sinus rhythm. Will continue the patient's home medications. 6. ACUTE ON CHRONIC HYPOXEMIC RESPIRATORY FAILURE, MOST LIKELY SECONDARY TO NUMBER 1. Will use p.r.n. BiPAP as needed. Hopefully, this will improve with diuresis. The patient states overall she does feel improved. 7. OPIATE DEPENDENCY, CONTINUOUS. Will continue the patient's home medication. 8. CHRONIC OBSTRUCTIVE PULMONARY DISEASE. Will continue the patient's home medication. 9. BIPOLAR DEPRESSION. Will continue the patient's home medication. DISPOSITION: The patient is a FULL CODE. Pending patient's symptomatology and diagnostic findings, will re-evaluate in the a.m. Time spent on the followup including assessment, plan, physical examination, patient education, and review of previous and current medical records is 40 minutes. DICTATING PHYSICIAN: JENA PAREDES NP [id number] PHY#: [id number] ID: [id number] JOB#: [id number] ACCT: [id number] cc: >
[2017-02-26] MEDS: OXYCODONE HCL IR 5 MG TABLET PO PRN (11:38)
[2017-02-26] MEDS: ALBUMIN HUMAN 50 ML IV SCH ×2 (14:30→16:00)
[2017-02-26] MEDS ORDERED: FUROSEMIDE INJ/PF 40 MG/4 ML SDV IV PRN (16:00)
[2017-02-26] MEDS: LACTOBACILLUS ACIDOPHILUS 250 MG TAB PO SCH (18:18)
[2017-02-26] MEDS ORDERED: (PENDING PHARMACY ID) (Potassium Chloride [Klor-Con M20] 20 MEQ) PO SCH (22:00)
[2017-02-26] MEDS: DILTIAZEM HCL 180 MG CAPSULE.CR PO SCH (22:15)
[2017-02-26] MEDS: METOPROLOL SUCCINATE 50 MG TAB.SR.24H PO SCH (22:15)
[2017-02-27] MEDS: VANCOMYCIN HCL INJ 500 MG VIAL PO SCH ×5 (00:13→23:18)
[2017-02-27] MEDS: HEPARIN SOD (PORCINE) 5,000 UNIT/ML 1 ML SYRINGE SUBCUT SCH ×3 (06:21→22:17)
[2017-02-27 06:34] LABS: HEMATOCRIT 22.3 % (36.0-47.0); HGB HCT DIFFERENCE 0.5; MEAN CORPUSCULAR HEMOGLOBIN 29.4 pg (27.0-33.4); MEAN CORPUSCULAR HGB CONC 33.9 g/dL (32.0-36.0); MEAN CORPUSCULAR VOLUME 87 fl (80-97); RED BLOOD COUNT 2.57 10^6/uL (3.72-5.28); RED CELL DISTRIBUTION WIDTH 14.4 % (11.5-14.0); WHITE BLOOD COUNT 4.7 10^3/uL (4.0-10.5)
[2017-02-27 06:37] LABS: HEMOGLOBIN 7.6 g/dL (12.0-15.5)
[2017-02-27 06:39] LABS: ANION GAP 7 (5-19); BLOOD UREA NITROGEN 10 mg/dL (7-20); CALCIUM 8.1 mg/dL (8.4-10.2); CARBON DIOXIDE 33 mmol/L (22-30); CHLORIDE 100 mmol/L (98-107); CREATININE RESULT 1.08 mg/dL (0.52-1.25); GLUCOSE 81 mg/dL (75-110)
[2017-02-27] MEDS: BUDESONIDE NEB 0.5 MG/2 ML AMPUL NEB SCH ×2 (07:57→20:49)
[2017-02-27] MEDS: GABAPENTIN 300 MG CAPSULE PO SCH ×2 (09:47→22:17)
[2017-02-27] MEDS: POTASSIUM CHLORIDE 10 MEQ TABLET.SA PO SCH ×2 (09:47→22:17)
[2017-02-27] MEDS: IRON POLYSACCHARIDES COMPLEX 150 MG CAPSULE PO SCH (09:47)
[2017-02-27] MEDS: NITROGLYCERIN 5 MG (0.2 MG/HR) PATCH.TD24 TD SCH (09:48)
[2017-02-27] MEDS: METOPROLOL SUCCINATE 50 MG TAB.SR.24H PO SCH ×2 (09:48→22:17)
[2017-02-27] MEDS: DOCUSATE SODIUM 100 MG CAPSULE PO SCH (09:49)
[2017-02-27] MEDS: LACTOBACILLUS ACIDOPHILUS 250 MG TAB PO SCH ×2 (09:49→18:04)
[2017-02-27] MEDS: OLANZAPINE 2.5 MG TABLET PO SCH ×2 (09:50→22:17)
[2017-02-27] MEDS: DILTIAZEM HCL 180 MG CAPSULE.CR PO SCH ×2 (09:50→22:17)
[2017-02-27] MEDS: NICOTINE 7 MG/24 HR PATCH.TD24 TD SCH (09:50)
[2017-02-27] MEDS ORDERED: DIPHENHYDRAMINE HCL 25 MG CAPSULE PO PRN (14:09)
[2017-02-27] MEDS ORDERED: ACETAMINOPHEN 325 MG TABLET PO PRN (14:09)
[2017-02-27] MEDS ORDERED: NORMAL SALINE 250 ML IV PRN ×2 (14:09)
[2017-02-27] MEDS ORDERED: FUROSEMIDE INJ/PF 20 MG/2 ML SDV IV PRN (14:09)
--- NOTE | 2017-02-27 14:56 | PROGRESS NOTE E ---
Progress Note NAME: HUA CAVANAUGH : 1955 AGE: 61Y DATE: 02/27/2017 ROOM: 435 SUBJECTIVE: The patient is currently lying in bed. She states that she feels much better today than she did yesterday. She describes herself as being 200 times better. The patient denies any nausea or vomiting. No dizziness or chest pain. The patient does admit to shortness of breath but states that she is okay lying in the bed. The patient states that she feels she should have had oxygen at home for awhile now. She denies any dizziness or chest pain but states that she feels much better with this fluid off of her, and the patient does not voice any other concerns at this time. REVIEW OF SYSTEMS: Rest of review of systems is negative. MEDICATIONS: Have been reviewed. OBJECTIVE: GENERAL: The patient is a 61-year-old female who is awake, alert. She is oriented to person, place, time, and situation. She is verbal, conversational, does not appear to be in any acute distress. VITAL SIGNS: Temperature is 97.8, pulse 77, respirations 16, blood pressure is 115/53, oxygen saturation is 96% on 3 L nasal cannula. SKIN: Warm and dry. No rash. She is not diaphoretic. HEENT: Pupils equal, round, and reactive to light and accommodation. Conjunctivae pink. There is no JVP. CARDIOVASCULAR SYSTEM: Heart is regular with no murmur or rub. CHEST: Clear, symmetrical, unlabored. ABDOMEN: Soft, nontender, nondistended. BACK: No CVA tenderness or sacral edema. EXTREMITIES: No clubbing or cyanosis. The patient has no more edema. PSYCHIATRIC: Appropriate affect, pleasant mood. DIAGNOSTICS: Lab values are as follows: Hematology obtained on 02/27/2017: WBCs are 4.7, hemoglobin is 7.6, hematocrit is 22.3, platelet count is 263,000. Chemistry obtained on 02/17/2017: Sodium is 140, potassium is 4.0, chloride 100, carbon dioxide 33, BUN 10, creatinine is 1.08, glucose 81, calcium is 8.1. IMPRESSION AND PLAN: 1. CLOSTRIDIUM DIFFICILE COLITIS. This is day 8 of 21 of Vancocin. Continue probiotic therapy and yogurt with each tray. 2. MALNUTRITION SECONDARY TO #1 MOST LIKELY. The patient has malabsorption pattern. Her albumin is extremely low at 2.5 and her iron of 36. Have encouraged oral intake and high-protein diet. The patient has received iron and will follow. 3. ACUTE ON CHRONIC SYSTOLIC CONGESTIVE HEART FAILURE. The patient appears to have right-sided heart failure. The patient appeared anasarca on admission with a third spacing type edema. She was given albumin yesterday and diuresed 7 L. Will give a diuretic holiday today and follow. 4. IRON DEFICIENCY ANEMIA. May have underlying chronic disease but also due to malabsorption. The patient may have a component of high output failure as well given this anemia. Will type and cross and transfuse 2 units of packed red blood cells now that the patient has been diuresed between units. 5. PAROXYSMAL ATRIAL FIBRILLATION. The patient is in sinus rhythm. Continue home medication. 6. LFACU-ZO-EHBEGHP HYPOXEMIC RESPIRATORY FAILURE MOST LIKELY SECONDARY TO #1. The patient has not required BiPAP in 24 hours. This improved with diuresis. Will see if the patient qualifies for home O2. 7. OPIATE DEPENDENCY CONTINUOUS. Will continue the patient's home medication. 8. CHRONIC OBSTRUCTIVE PULMONARY DISEASE. Will continue the patient's home medication. 9. BIPOLAR DEPRESSION. Continue home medication. DISPOSITION: The patient is a FULL CODE. Pending patient's symptomatology and diagnostic findings, will reevaluate in the a.m. Time spent on the followup including assessment, plan, physical examination, patient education, and review of records is 35 minutes. DICTATING PHYSICIAN: JENA PAREDES NP [id number] PHY#: [id number] ID: [id number] JOB#: [id number] ACCT: [id number] cc: >
[2017-02-27] MEDS: OXYCODONE-ACETAMINOPHEN 5-325 MG TABLET PO PRN (19:46)
[2017-02-27] MEDS: OXYCODONE HCL IR 5 MG TABLET PO PRN (19:46)
[2017-02-28 05:44] LABS: HEMATOCRIT 30.4 % (36.0-47.0); HGB HCT DIFFERENCE 0.5; MEAN CORPUSCULAR HEMOGLOBIN 29.2 pg (27.0-33.4); MEAN CORPUSCULAR HGB CONC 33.8 g/dL (32.0-36.0); MEAN CORPUSCULAR VOLUME 86 fl (80-97); RED BLOOD COUNT 3.52 10^6/uL (3.72-5.28); RED CELL DISTRIBUTION WIDTH 14.1 % (11.5-14.0); WHITE BLOOD COUNT 5.7 10^3/uL (4.0-10.5)
[2017-02-28 05:47] LABS: HEMOGLOBIN 10.3 g/dL (12.0-15.5)
[2017-02-28 05:59] LABS: ANION GAP 6 (5-19); BLOOD UREA NITROGEN 13 mg/dL (7-20); CALCIUM 8.4 mg/dL (8.4-10.2); CARBON DIOXIDE 32 mmol/L (22-30); CHLORIDE 102 mmol/L (98-107); CREATININE RESULT 1.01 mg/dL (0.52-1.25); GLUCOSE 88 mg/dL (75-110); MAGNESIUM 1.9 mg/dL (1.6-2.3); POTASSIUM 4.5 mmol/L (3.6-5.0); SODIUM 139.5 mmol/L (137-145)
[2017-02-28] MEDS: VANCOMYCIN HCL INJ 500 MG VIAL PO SCH ×2 (06:21→14:00)
[2017-02-28] MEDS: HEPARIN SOD (PORCINE) 5,000 UNIT/ML 1 ML SYRINGE SUBCUT SCH ×2 (06:21→14:01)
[2017-02-28] MEDS: BUDESONIDE NEB 0.5 MG/2 ML AMPUL NEB SCH (08:33)
[2017-02-28] MEDS: POTASSIUM CHLORIDE 10 MEQ TABLET.SA PO SCH (09:19)
[2017-02-28] MEDS: IRON POLYSACCHARIDES COMPLEX 150 MG CAPSULE PO SCH (09:20)
[2017-02-28] MEDS: DOCUSATE SODIUM 100 MG CAPSULE PO SCH (09:20)
[2017-02-28] MEDS: GABAPENTIN 300 MG CAPSULE PO SCH (09:21)
[2017-02-28] MEDS: LACTOBACILLUS ACIDOPHILUS 250 MG TAB PO SCH (09:21)
[2017-02-28] MEDS: NICOTINE 7 MG/24 HR PATCH.TD24 TD SCH (09:22)
[2017-02-28] MEDS: OXYCODONE-ACETAMINOPHEN 5-325 MG TABLET PO PRN (09:37)
[2017-02-28] MEDS: OXYCODONE HCL IR 5 MG TABLET PO PRN (09:37)
[2017-02-28] MEDS ORDERED: FUROSEMIDE 40 MG TABLET PO SCH (10:00)
[2017-02-28] MEDS ORDERED: MAG HYDROX/AL HYDROX/SIMETH SUSP 30 ML UDCUP PO PRN (10:30)
[2017-02-28] MEDS: DILTIAZEM HCL 180 MG CAPSULE.CR PO SCH (10:53)
[2017-02-28] MEDS: METOPROLOL SUCCINATE 50 MG TAB.SR.24H PO SCH (10:53)
--- NOTE | 2017-02-28 10:53 | DISCHARGE SUMMARY E ---
Discharge Summary NAME: HUA CAVANAUGH : 1955 AGE: 61Y ADMITTED: 02/25/2017 DISCHARGED: 02/28/2017 CODE STATUS: FULL CODE. PRIMARY CARE PROVIDER: Dr. Villasenor DISCHARGE DIAGNOSIS INCLUDES: 1. Clostridium difficile colitis, day 9 of 21 of vancomycin. 2. Malnutrition secondary to #1 with subsequent hypoalbuminemia and anasarca from third-spacing edema. 3. Chronic systolic congestive heart failure. 4. Iron-deficiency anemia. 5. Paroxysmal atrial fibrillation. 6. Acute on chronic hypoxemic respiratory failure secondary to #2. 7. Opiate dependency, continuous. 8. Chronic obstructive pulmonary disease. 9. Bipolar depression. DISCHARGE MEDICATIONS INCLUDE: 1. Toprol XL 100 mg p.o. every 12 hours. 2. Lasix 40 mg p.o. daily, 30 tablets, 0 refills. 3. Vancocin 250 mg p.o. every 6 hours. 4. Zyprexa 2.5 mg p.o. every 12 hours. 5. Cardizem 180 mg p.o. every 12 hours. 6. Pulmicort 0.5 mg neb every 12 hours. 7. Potassium chloride 20 mEq p.o. every 12 hours. 8. Percocet 7.5 mg/325 mg 1 tablet p.o. every 8 hours p.r.n. 9. Ibuprofen 800 mg p.o. every 8 hours p.r.n. 10. Gabapentin 300 mg p.o. every 12 hours. DIET: High protein, high calorie, iron rich. ACTIVITY: As tolerated. DIAGNOSTICS: Lab values are as follows. Hematology obtained on 02/28/2017: WBCs are 5.7, hemoglobin is 10.3, hematocrit is 30.4, platelet count is 301,000. Chemistry obtained on 02/28/2017: Sodium is 139, potassium 4.5, chloride is 102, carbon dioxide 32, BUN 13, creatinine is 1.01, glucose 88, calcium is 8.4, magnesium is 1.9, iron is 36, TIBC is 197, percent saturation 19, ferritin is 105, B12 is 511, folate is 484. Venous Doppler study obtained on 02/25/2017 reveals no evidence of DVT. PHYSICAL EXAMINATION: GENERAL: On examination, the patient is a well-developed, reasonably nourished 61-year-old female who is awake, alert. She is oriented to person, place, time, and situation. She is verbal, conversational, does not appear to be in any acute distress. VITAL SIGNS: As follows: Temperature is 97.7, pulse 75, respirations 16, blood pressure 169/73, oxygen saturation is 93% on room air. SKIN: Pale, dry. No rash. She is not diaphoretic. HEENT: Pupils equal, round, and reactive to light and accommodation. Conjunctivae pink. There is no evidence of JVP. CARDIOVASCULAR: Heart is regular. There is no murmur or rub. CHEST: Clear, symmetrical, unlabored. ABDOMEN: Soft, nontender, nondistended. BACK: No CVA tenderness or sacral edema. EXTREMITIES: No clubbing, cyanosis, edema. Anasarca is resolved. HISTORY OF PRESENT ILLNESS: The patient is a 61-year-old female with a past medical history of Clostridium difficile colitis which had been quite resistant as well as atrial fibrillation and COPD. The patient presented to the emergency department with a chief complaint of shortness of breath and edema. The patient had recently been on our service and had just been discharged 6 days prior to presentation. Upon presentation to the emergency department the patient was found to have anasarca as well as oxygen saturations in the mid 80s and therefore the patient was given Lasix in the emergency department and had some improvement of her symptoms. The patient had a weight gain of 10 kg since her previous discharge as well as a mildly elevated BNP. Given these findings the patient was referred to the hospitalist for admission and management. HOSPITAL COURSE: The patient was admitted to a continuous telemetry unit. Upon further history it appears the patient had been having diarrhea with the C. diff; however, it had resolved just 2 days ago. The patient stated that she did not have much of an appetite either and was found to be profoundly malnourished with an albumin of 2.5. The patient was also mildly iron deficient at 36.5, suggestive of poor absorption most likely from the C. diff colitis. The patient was diuresed in conjunction with albumin given the patient's poor nutritional state and the patient diuresed over 8 L during this admission. The patient had complete symptom resolution, no further tachypnea or profound hypoxia. The patient's anemia has been attributed to some mild iron deficiency which was thought to be due to poor absorption. The patient does not tolerate iron supplementation well. The patient's initial hemoglobin was found to be 8.8 and after aggressive diuresis trended down to 7.6 oddly. The patient agreed to blood transfusion and the patient was diuresed between units and hemoglobin currently sits at 10.3. I discussed the overall clinical picture with the patient and she does voice understanding. At this time the patient states that she feels better than she has in 3 months and is quite eager for discharge. DISCHARGE PLANNING: The patient is advised to follow up with her primary care provider within 1 or 2 weeks for hospital followup. The patient has been increased on her Lasix dosage and the patient is encouraged to eat a high-protein diet that is also iron rich. Time spent on this discharge, including assessment/plan, physical examination, patient education and review of medical records, is 25 minutes. DICTATING PHYSICIAN: JENA PAREDES NP [id number] PHY#: [id number] ID: [id number] JOB#: [id number] ACCT: [id number] cc:TON CARDONA M.D. >
[2017-02-28] MEDS: OLANZAPINE 2.5 MG TABLET PO SCH (10:54)
[2017-02-28] MEDS: NITROGLYCERIN 5 MG (0.2 MG/HR) PATCH.TD24 TD SCH (10:54)
[2017-02-28] MEDS ORDERED: NORMAL SALINE 1000 ML 1,000 ML IV ONE (12:30)
[2017-02-28 14:58] VITALS: BP 118/54
== END 2017-02-28 15:15 | disposition home or self-care (01) | DRG 371 ==
LOC: ER 16:23 → EH 20:16 → 4S 21:27
PROVIDERS: ADMIT Internal Medicine; ATTEND Internal Medicine
PROC: 5A09357 Assistance with Respiratory Ventilation, Less than 24 Consecutive Hours, Continuous Positive Airway Pressure (ICD-10-PCS; principal; 2017-02-25)
PROC: 3E0F73Z Introduction of Anti-inflammatory into Respiratory Tract, Via Natural or Artificial Opening (ICD-10-PCS; 2017-02-26)
PROC: 30233N1 Transfusion of Nonautologous Red Blood Cells into Peripheral Vein, Percutaneous Approach (ICD-10-PCS; 2017-02-27)
DX: A04.72 Enterocolitis due to Clostridium difficile, not specified as recurrent (principal); J96.21 Acute and chronic respiratory failure with hypoxia; I50.33 Acute on chronic diastolic (congestive) heart failure; E46 Unspecified protein-calorie malnutrition; I50.22 Chronic systolic (congestive) heart failure; F11.20 Opioid dependence, uncomplicated; Z68.28 Body mass index [BMI] 28.0-28.9, adult; D50.9 Iron deficiency anemia, unspecified; I48.0 Paroxysmal atrial fibrillation; J44.9 Chronic obstructive pulmonary disease, unspecified; I08.0 Rheumatic disorders of both mitral and aortic valves; F31.9 Bipolar disorder, unspecified; M19.90 Unspecified osteoarthritis, unspecified site; K21.9 Gastro-esophageal reflux disease without esophagitis; Z79.899 Other long term (current) drug therapy; Z87.891 Personal history of nicotine dependence; Z88.8 Allergy status to other drugs, medicaments and biological substances; Z82.49 Family history of ischemic heart disease and other diseases of the circulatory system
CPT/HCPCS: 36415; 36430; 71010; 80048; 80053; 82550; 82553; 82607; 82728; 82746; 83540; 83550; 83735; 83880; 84443; 84484; 85025; 85027; 85045; 86850; 86900; 86901; 86920; 93970; 94640; 94760; 94799; 96374; 99285; J1644; J1756; J1940; J3370; J3490; P9016; P9047

== ENCOUNTER → 2017-06-11 | Outpatient (CLI) | payer MEDICAID ==
--- NOTE | 2017-06-11 14:12 | RADIOLOGY REPORT (SQ) ---
EXAM DESCRIPTION: CHEST PA/LATERAL COMPLETED DATE/TIME: 06/11/2017 12:54 pm REASON FOR STUDY: CHRONIC OBSTRUCTIVE PULMONARY DISEASE, UNSPECIFIED COMPARISON: 02/15/2017, 02/16/2017 NUMBER OF VIEWS: Two view. TECHNIQUE: Frontal and lateral radiographic views of the chest acquired. LIMITATIONS: None. FINDINGS: LUNGS AND PLEURA: Mild hyperinflation most likely related to COPD. Minimal right apical scarring. No new or active infiltrates. No pleural effusions. MEDIASTINUM AND HILAR STRUCTURES: No masses or contour abnormalities. HEART AND VASCULATURE: Heart normal size. No evidence for failure. BONY STRUCTURES: No acute findings. HARDWARE: None. OTHER: No other significant finding. IMPRESSION: COPD. Minimal right apical scarring. No acute findings. TECHNICAL DOCUMENTATION: JOB ID: [id number] [employer]- All Rights Reserved Reading location - IP/workstation name: [email or web address]
== END ==
LOC: OD 11:59
PROVIDERS: ATTEND Physician Assistant
DX: I48.91 Unspecified atrial fibrillation (principal); J44.9 Chronic obstructive pulmonary disease, unspecified
CPT/HCPCS: 71046

== ENCOUNTER → 2017-07-02 | Outpatient (CLI) | payer MEDICAID ==
--- NOTE | 2017-07-02 14:28 | RADIOLOGY REPORT (SQ) ---
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 TECHNIQUE: Noncontrasted thin section axial images through the temporal bones and skull base were ob tained and reviewed at bone windows and bone algorithm with coronal and sagittal reconstructions. All CT scanners at this facility use dose modulation, iterative reconstruction, and/or weight based d osing when appropriate to reduce radiation dose to as low as reasonably achievable (ALARA). [facility]: Dose Right [facility]: CareDose [facility]: Dose Right [facility]: Teradose 4D [facility]: [employer] RADIATION DOSE: 12 mGy. LIMITATIONS: None. FINDINGS: RIGHT SIDE: EXTERNAL AUDITORY CANAL: Widely patent. TYMPANIC MEMBRANE: No masses, thickening or medial retraction. OSSICLES AND MIDDLE EAR CAVITY: Normal ossicles. No middle ear masses or fluid. INNER EAR STRUCTURES: Normal vestibule and cochlea. Normal aqueducts. INTERNAL AUDITORY CANAL: Normal bony canal without narrowing or widening. No calcified or ossified m asses. TEMPOROMANDIBULAR JOINT: Normal. MASTOID AIR CELLS: Clear. LEFT SIDE: EXTERNAL AUDITORY CANAL: Widely patent. TYMPANIC MEMBRANE: No masses, thickening or medial retraction. OSSICLES AND MIDDLE EAR CAVITY: Normal ossicles. No middle ear masses or fluid. INNER EAR STRUCTURES: Normal vestibule and cochlea. Normal aqueducts. INTERNAL AUDITORY CANAL: Normal bony canal without narrowing or widening. No calcified or ossified m asses. TEMPOROMANDIBULAR JOINT: Normal. MASTOID AIR CELLS: Clear. CENTRAL SKULL BASE: Normal foramina. No lytic or blastic lesions. INFERIOR BRAIN: Limited view. No acute findings. LIMITED VIEW OF PARANASAL SINUSES IN THE FIELD OF VIEW: Normal. IMPRESSION: UNREMARKABLE NONCONTRASTED TEMPORAL BONE CT. TECHNICAL DOCUMENTATION: JOB ID: [id number] Quality ID # [id number]: Final reports with documentation of one or more dose reduction techniques (e.g., Au tomated exposure control, adjustment of the mA and/or kV according to patient size, use of iterative reconstruction technique) 2010 [employer]- All Rights Reserved Reading location - IP/workstation name: [email or web address]
== END ==
LOC: RAD 12:52
PROVIDERS: ATTEND Otolaryngology
DX: H90.6 Mixed conductive and sensorineural hearing loss, bilateral (principal); H72.91 Unspecified perforation of tympanic membrane, right ear
CPT/HCPCS: 70480

== ENCOUNTER → 2017-07-16 | Outpatient (CLI) | payer MEDICAID ==
--- NOTE | 2017-07-16 18:25 | WOMENS IMAGING REPORT ---
EXAM DESCRIPTION: BILAT SCREENING MAMMO W/CAD COMPLETED DATE/TIME: 07/16/2017 10:49 am REASON FOR STUDY: SCREENING MAMMO Z12.31 ENCNTR SCREEN MAMMOGRAM FOR MALIGNANT NEOPLASM OF GUI COMPARISON: None. TECHNIQUE: Standard craniocaudal and mediolateral oblique views of each breast recorded using digita l acquisition. LIMITATIONS: None. FINDINGS: Findings present which are benign by mammographic criteria. No suspicious masses, calcifi cations or architectural distortion. Pertinent benign findings: Benign bilateral breast parenchymal calcifications are present Read with the assistance of CAD. .[facility] - R2 Cenova Version 1.3 .[facility] - R2 Cenova Version 1.3 .[facility] - R2 Cenova Version 2.4 .[facility] [place] - R2 Cenova Version 2.4 .[facility] - R2 Battalion Chief Version 9.2 Benign mammographic findings may include one or more of the following: Smooth masses, popcorn/rim/co arse calcifications, asymmetries, post-procedure changes, and lesions with long-standing stability. IMPRESSION: BENIGN MAMMOGRAPHIC FINDINGS. BIRADS 2 BREAST DENSITY: b. There are scattered areas of fibroglandular density. BIRAD: 2 BENIGN FINDING(S) RECOMMENDATION: ROUTINE SCREENING Please continue yearly bilateral screening in July 2018. Please consider bilateral screening tomosy nthesis. COMMENT: The patient has been notified of the results by letter per MQSA requirements. Additional no tification policies are in place for contacting patient with suspicious or incomplete findings. Quality ID #[id number]: The [employer] recommends an annual screening mammogram for women aged 40 years or over. This facility utilizes a reminder system to ensure that all patients receive reminder letters, and/or direct phone calls for appointments. This includes reminders for routine scr eening mammograms, diagnostic mammograms, or other Breast Imaging Interventions when appropriate. Th is patient will be placed in the appropriate reminder system. The [employer] (ACR) has developed recommendations for screening MRI of the breast s in certain patient populations, to be used in conjunction with mammography. Breast MRI surveillanc e may be appropriate for women with more than 20% lifetime risk of developing breast cancer as deter mined by genetic testing, significant family history of the disease, or history of mantle radiation f or Hodgkins Disease. ACR Practice Guidelines 2008. TECHNICAL DOCUMENTATION: FINDING NUMBER: (1) ASSESSMENT: (1) JOB ID: [id number] [employer]- All Rights Reserved Reading location - IP/workstation name: [email or web address]
== END ==
LOC: WI 10:14
PROVIDERS: ATTEND Physician Assistant
DX: Z12.31 Encounter for screening mammogram for malignant neoplasm of breast (principal)
CPT/HCPCS: 77067

== ENCOUNTER → 2017-10-07 | Outpatient (CLI) | payer MEDICAID ==
[2017-10-07 17:11] LABS: ABSOLUTE EOSINOPHILS # (AUTO) 0.3 10^3/uL (0.0-0.6); ABSOLUTE LYMPHOCYTES (AUTO) 3.3 10^3/uL (0.5-4.7); ABSOLUTE MONOCYTES (AUTO) 0.7 10^3/uL (0.1-1.4); ABSOLUTE NEUT (AUTO) 2.8 10^3/uL (1.7-8.2); BASOPHILS % (AUTO) 0.2 % (0-2); EOSINOPHILS % (AUTO) 4.3 % (0-6); HEMATOCRIT 37.9 % (36.0-47.0); HEMOGLOBIN 12.5 g/dL (12.0-15.5); LYMPHOCYTES % (AUTO) 46.5 % (13-45); MEAN CORPUSCULAR HEMOGLOBIN 28.9 pg (27.0-33.4); MEAN CORPUSCULAR HGB CONC 32.9 g/dL (32.0-36.0); MEAN CORPUSCULAR VOLUME 88 fl (80-97); MONOCYTES % (AUTO) 9.7 % (3-13); PLATELET COUNT 325 10^3/uL (150-450); RED BLOOD COUNT 4.31 10^6/uL (3.72-5.28); RED CELL DISTRIBUTION WIDTH 13.7 % (11.5-14.0); SEGMENTED NEUTROPHILS % (AUTO) 39.3 % (42-78); TOTAL CELLS COUNTED % (AUTO) 100 %; WHITE BLOOD COUNT 7.1 10^3/uL (4.0-10.5)
[2017-10-07 17:33] LABS: APPEARANCE,URINE CLEAR; BILIRUBIN,URINE NEGATIVE (NEGATIVE); COLOR,URINE YELLOW; GLUCOSE, URINE NEGATIVE (NEGATIVE); KETONES,URINE NEGATIVE (NEGATIVE); LEUKOCYTE ESTERASE,URINE NEGATIVE (NEGATIVE); NITRITE,URINE NEGATIVE (NEGATIVE); PROTEIN,URINE NEGATIVE (NEGATIVE); UROBILINOGEN,URINE NEGATIVE mg/dL (<2.0)
[2017-10-07 17:45] LABS: ALANINE AMINOTRANSFERASE 24 U/L (9-52); ALBUMIN 4.4 g/dL (3.5-5.0); ALKALINE PHOSPHATASE 77 U/L (38-126); ANION GAP 9 (5-19); ASPARTATE AMINO TRANSFERASE 16 U/L (14-36); BILIRUBIN,DIRECT 0.3 mg/dL (0.0-0.4); BILIRUBIN,TOTAL 0.3 mg/dL (0.2-1.3); BLOOD UREA NITROGEN 22 mg/dL (7-20); CALCIUM 9.7 mg/dL (8.4-10.2); CARBON DIOXIDE 27 mmol/L (22-30); CHLORIDE 104 mmol/L (98-107); GLUCOSE 90 mg/dL (75-110); POTASSIUM 5.5 mmol/L (3.6-5.0); SODIUM 139.9 mmol/L (137-145); TOTAL PROTEIN 6.9 g/dL (6.3-8.2)
== END ==
LOC: OD 15:45
PROVIDERS: ATTEND Internal Medicine Nephrology
DX: I12.9 Hypertensive chronic kidney disease with stage 1 through stage 4 chronic kidney disease, or unspecified chronic kidney disease (principal); N18.3 Chronic kidney disease, stage 3 (moderate); R60.9 Edema, unspecified
CPT/HCPCS: 36415; 80053; 81001; 83735; 85025

== ENCOUNTER → 2017-11-05 | Outpatient (CLI) | payer MEDICAID ==
--- NOTE | 2017-11-05 14:20 | RADIOLOGY REPORT (SQ) ---
EXAM DESCRIPTION: U/S RETROPERITON (RENAL/AORTA) COMPLETED DATE/TIME: 11/05/2017 11:44 am REASON FOR STUDY: CHRONIC KIDNEY DISEASE, STAGE 3 N18.3 CHRONIC KIDNEY DISEASE, STAGE 3 (MODERATE) I12.9 HYPERTENSIVE CHRONIC KIDNEY DISEASE W STG 1-4/UNSP CHR COMPARISON: None. TECHNIQUE: Dynamic and static grayscale images acquired of the kidneys and bladder and recorded on P ACS. Additional selected color Doppler and spectral images recorded. LIMITATIONS: None. FINDINGS: RIGHT KIDNEY: 8.8 cm. Cortical thinning. No solid or suspicious masses. No hydronep hrosis. No calcifications. LEFT KIDNEY: 9.9 cm. Cortical thinning. No solid or suspicious masses. No hydronephrosis. No calcifications. BLADDER: No masses. OTHER FINDINGS: No other significant finding. IMPRESSION: Medical renal disease. No hydronephrosis. TECHNICAL DOCUMENTATION: JOB ID: [id number] [employer]- All Rights Reserved Reading location - IP/workstation name: [email or web address]
== END ==
LOC: RAD 11:02
PROVIDERS: ATTEND Internal Medicine Nephrology
DX: I12.9 Hypertensive chronic kidney disease with stage 1 through stage 4 chronic kidney disease, or unspecified chronic kidney disease (principal); N18.3 Chronic kidney disease, stage 3 (moderate)
CPT/HCPCS: 76770

== ENCOUNTER → 2017-11-15 | Outpatient (CLI) | payer MEDICAID ==
[2017-11-15 12:22] LABS: HEMATOCRIT 31.2 % (36.0-47.0); HEMOGLOBIN 10.3 g/dL (12.0-15.5); MEAN CORPUSCULAR HEMOGLOBIN 28.3 pg (27.0-33.4); MEAN CORPUSCULAR HGB CONC 33.1 g/dL (32.0-36.0); MEAN CORPUSCULAR VOLUME 85 fl (80-97); PLATELET COUNT 399 10^3/uL (150-450); RED BLOOD COUNT 3.66 10^6/uL (3.72-5.28); WHITE BLOOD COUNT 7.2 10^3/uL (4.0-10.5)
[2017-11-15 12:40] LABS: APPEARANCE,URINE SLIGHTLY-CLOUDY; BILIRUBIN,URINE NEGATIVE (NEGATIVE); COLOR,URINE YELLOW; GLUCOSE, URINE NEGATIVE (NEGATIVE); KETONES,URINE NEGATIVE (NEGATIVE); LEUKOCYTE ESTERASE,URINE TRACE (NEGATIVE); NITRITE,URINE NEGATIVE (NEGATIVE); PROTEIN,URINE NEGATIVE (NEGATIVE); URINE SPECIFIC GRAVITY 1.013; UROBILINOGEN,URINE NEGATIVE mg/dL (<2.0)
[2017-11-15 12:49] LABS: ANION GAP 7 (5-19); BLOOD UREA NITROGEN 16 mg/dL (7-20); CALCIUM 9.2 mg/dL (8.4-10.2); CARBON DIOXIDE 28 mmol/L (22-30); CHLORIDE 105 mmol/L (98-107); GLUCOSE 81 mg/dL (75-110); SODIUM 140.3 mmol/L (137-145)
== END ==
LOC: OD 11:29
PROVIDERS: ATTEND Internal Medicine Nephrology
DX: I12.9 Hypertensive chronic kidney disease with stage 1 through stage 4 chronic kidney disease, or unspecified chronic kidney disease (principal); N18.3 Chronic kidney disease, stage 3 (moderate); R60.9 Edema, unspecified
CPT/HCPCS: 36415; 80048; 81001; 85027

== ENCOUNTER → 2017-12-18 | Outpatient (CLI) | payer MEDICAID ==
[2017-12-18 11:31] LABS: HEMATOCRIT 36.8 % (36.0-47.0); HEMOGLOBIN 12.2 g/dL (12.0-15.5); MEAN CORPUSCULAR HEMOGLOBIN 27.6 pg (27.0-33.4); MEAN CORPUSCULAR HGB CONC 33.1 g/dL (32.0-36.0); MEAN CORPUSCULAR VOLUME 83 fl (80-97); PLATELET COUNT 329 10^3/uL (150-450); RED BLOOD COUNT 4.41 10^6/uL (3.72-5.28); RED CELL DISTRIBUTION WIDTH 12.9 % (11.5-14.0); WHITE BLOOD COUNT 7.7 10^3/uL (4.0-10.5)
[2017-12-18 11:55] LABS: ANION GAP 8 (5-19); BLOOD UREA NITROGEN 14 mg/dL (7-20); CALCIUM 9.3 mg/dL (8.4-10.2); CARBON DIOXIDE 28 mmol/L (22-30); CHLORIDE 102 mmol/L (98-107); GLUCOSE 89 mg/dL (75-110); IRON(TIBC) 38.3 ug/dL (37-170); POTASSIUM 4.9 mmol/L (3.6-5.0); SODIUM 138.1 mmol/L (137-145)
[2017-12-19 15:38] LABS: A/G RATIO 1.4 (0.7-1.7); ALPHA-2-GLOBULIN 2 0.8 g/dL (0.4-1.0); BETA GLOBULINS 0.9 g/dL (0.7-1.3); GAMMA GLOBULIN 0.8 g/dL (0.4-1.8); GLOBULIN TOTAL 2.8 g/dL (2.2-3.9); MONOCLONAL SPIKE Not Observed g/dL (Not Observ); PROTEIN TOTAL SERUM 6.8 g/dL (6.0-8.5)
== END ==
LOC: OD 09:50
PROVIDERS: ATTEND Internal Medicine Nephrology
DX: I12.9 Hypertensive chronic kidney disease with stage 1 through stage 4 chronic kidney disease, or unspecified chronic kidney disease (principal); N18.3 Chronic kidney disease, stage 3 (moderate); D64.9 Anemia, unspecified; E87.5 Hyperkalemia
CPT/HCPCS: 36415; 80048; 82728; 83540; 83550; 84165; 84443; 85027

== ENCOUNTER → 2018-12-02 | Outpatient (CLI) | payer MEDICAID ==
--- NOTE | 2018-12-02 11:37 | RADIOLOGY REPORT (SQ) ---
EXAM DESCRIPTION: HIP LEFT AP/LATERAL COMPLETED DATE/TIME: 12/02/2018 11:26 am REASON FOR STUDY: INJURY OF LEFT HIP, INITIAL ENCOUNTER S79.912A UNSPECIFIED INJURY OF LEFT HIP, IN ITIAL ENCOUNTER COMPARISON: None. NUMBER OF VIEWS: Two views. TECHNIQUE: AP and frog-leg view of the left hip. LIMITATIONS: None. FINDINGS: MINERALIZATION: Normal. LEFT HIP: There is been a bipolar hip replacement. No acute fracture or dislocation. OPPOSITE HIP: No fracture or dislocation. No worrisome bone lesions. SOFT TISSUES: No findings. OTHER: No other significant finding. IMPRESSION: Postsurgical changes in the left hip with a bipolar prosthesis in place. No acute findi ngs. COMMENT: Pelvic fractures are often occult on plain radiographs. If strong clinical suspicion for f racture, recommend CT or MR. TECHNICAL DOCUMENTATION: JOB ID: [id number] [employer]- All Rights Reserved Reading location - IP/workstation name: [email or web address]
== END ==
LOC: RAD 10:53
PROVIDERS: ATTEND Nurse Practitioner Family
DX: S79.912A Unspecified injury of left hip, initial encounter (principal); X58.XXXA Exposure to other specified factors, initial encounter; Y93.9 Activity, unspecified; Y92.9 Unspecified place or not applicable

== ENCOUNTER → 2019-01-30 | Outpatient (CLI) | payer MEDICAID ==
--- NOTE | 2019-01-30 13:17 | WOMENS IMAGING REPORT ---
EXAM DESCRIPTION: BILAT SCREENING MAMMO W/CAD COMPLETED DATE/TIME: 01/30/2019 10:52 am REASON FOR STUDY: Z12.31 SCREENING MAMMO Z12.31 ENCNTR SCREEN MAMMOGRAM FOR MALIGNANT NEOPLASM OF B RE COMPARISON: 07/16/2017. EXAM PARAMETERS: Standard craniocaudal and mediolateral oblique views of each breast recorded using digital acquisition. Read with the assistance of CAD. .[facility] - [employer] Version 9.2 LIMITATIONS: None. FINDINGS: Findings present which are benign by mammographic criteria. No suspicious masses, calcifi cations or architectural distortion. Pertinent benign findings: Stable calcifications. Benign mammographic findings may include one or more of the following: Smooth masses, popcorn/rim/co arse calcifications, asymmetries, post-procedure changes, and lesions with long-standing stability. IMPRESSION: BENIGN MAMMOGRAPHIC FINDINGS. BIRADS 2 BREAST DENSITY: b. There are scattered areas of fibroglandular density. BIRAD: ASSESSMENT: 2 BENIGN FINDING(S) RECOMMENDATION: ROUTINE SCREENING COMMENT: The patient has been notified of the results by letter per SA requirements. Additional no tification policies are in place for contacting patient with suspicious or incomplete findings. Quality ID #[id number]: The [employer] recommends an annual screening mammogram for women aged 40 years or over. This facility utilizes a reminder system to ensure that all patients receive reminder letters, and/or direct phone calls for appointments. This includes reminders for routine scr eening mammograms, diagnostic mammograms, or other Breast Imaging Interventions when appropriate. Th is patient will be placed in the appropriate reminder system. TECHNICAL DOCUMENTATION: FINDING NUMBER: (1) ASSESSMENT: (1) JOB ID: [id number] [employer] All Rights Reserved Reading location - IP/workstation name: [facility]-
== END ==
LOC: WI 10:30
PROVIDERS: ATTEND Nurse Practitioner Family
DX: Z12.31 Encounter for screening mammogram for malignant neoplasm of breast (principal)
CPT/HCPCS: 77067

== ENCOUNTER → 2019-06-22 | Outpatient (CLI) | payer MEDICAID ==
--- NOTE | 2019-06-23 10:53 | RADIOLOGY REPORT (SQ) ---
EXAM DESCRIPTION: CT LUNG CANCER SCREENING COMPLETED DATE/TIME: 06/22/2019 1:24 pm REASON FOR STUDY: Z12.2 ENCNTR SCREEN FOR MALIGNANT NEOPLASM OF RESPIRATORY ORGANS Z12.2 ENCNTR SCR EEN FOR MALIGNANT NEOPLASM OF RESPIRATORY OR Has the patient had a Chest CT scan within the past year? N Was the patient offered tobacco cessation counseling? Y Was the patient engaged in shared decision making for this test? Y Does the patient have signs or symptoms of Lung Cancer? N Is the patient a smoker? Y How many pack years? 50 How many years since quitting smoking? 0 Patients age: 63 COMPARISON: None. TECHNIQUE: Low Dose CT scan performed of the chest without intravenous contrast for purposes of scre ening for lung cancer. Images reviewed with lung, soft tissue and bone windows. Reconstructed coron al and sagittal MPR images reviewed. All images stored on PACS. All CT scanners at this facility use dose modulation, iterative reconstruction, and/or weight based d osing when appropriate to reduce radiation dose to as low as reasonably achievable (ALARA). [facility]: Dose Right [facility]: CareDose [facility]: Dose Right [facility]: Teradose 4D [facility]: Smart Shareable Ink RADIATION DOSE: CT Rad equipment meets quality standard of care and radiation dose reduction techniq ues were employed. CTDIvol: 2.0 mGy. DLP: 89 mGy-cm. mGy. . LIMITATIONS: No technical limitations. FINDINGS: LUNG NODULES: Description: Spiculated right apical mass with irregular borders best show n on axial images 78-87 Size: 1.2 x 0.9 cm in size REMAINING LUNGS AND PLEURA: No pleural effusions or calcifications. No pneumothorax. Diffuse ch anges of obstructive lung disease. HILAR AND MEDIASTINAL STRUCTURES: No identified masses. No abnormal nodes. HEART AND VASCULAR STRUCTURES: No aortic aneurysm. No pericardial effusion. No cardiac devices. CORONARY ARTERY CALCIFICATIONS: Mild to moderate calcifications. UPPER ABDOMEN, THYROID, BONES, OTHER SOFT TISSUES: No significant findings. IMPRESSION: SUSPICIOUS LESION IN THE RIGHT LUNG APEX 1.2 X 0.9 CM IN SIZE. CONSIDER PET-CT FOR FOLL OW-UP. NO OTHER CLINICALLY SIGNIFICANT/POTENTIALLY CLINICALLY SIGNIFICANT FINDINGS LUNGRADS: LUNGRADS: 4A SUSPICIOUS; FINDINGS FOR WHICH ADDITIONAL DIAGNOSTIC TESTING AND/OR TISSUE SA MPLING IS RECOMMENDED. MODIFIER: NONE. RECOMMENDATION: Follow up with LDCT in 3 months; PET/CT may be used when there is a ? 8 mm solid com ponent. COMMENT: CRITERIA: Solid nodule(s): ? 8 mm to < 15 mm at baseline OR growing < 8 mm OR new 6 mm to < 8 mm. Part solid nodule(s): ? 6 mm total diameter with solid component ? 6 mm to < 8 mm OR with a new or gr owing < 4 mm solid component. Endobronchial nodule. TECHNICAL DOCUMENTATION: JOB ID: [id number] Quality ID # [id number]: Final reports with documentation of one or more dose reduction techniques (e.g., Au tomated exposure control, adjustment of the mA and/or kV according to patient size, use of iterative reconstruction technique) 2010 [facility]iology Reading location - IP/workstation name: [email or web address]
== END ==
LOC: RAD 13:10
PROVIDERS: ATTEND Nurse Practitioner Family
DX: Z12.2 Encounter for screening for malignant neoplasm of respiratory organs (principal); R91.1 Solitary pulmonary nodule; I25.10 Atherosclerotic heart disease of native coronary artery without angina pectoris
CPT/HCPCS: G0297

== ENCOUNTER → 2019-10-06 | Outpatient (CLI) | payer MEDICAID ==
--- NOTE | 2019-10-06 14:19 | RADIOLOGY REPORT (SQ) ---
EXAM DESCRIPTION: PET CT SKULL/THIGH IMAGES COMPLETED DATE/TIME: 10/06/2019 12:25 pm REASON FOR STUDY: LUNG CANCER R91.8 OTHER NONSPECIFIC ABNORMAL FINDING OF LUNG FIELD COMPARISON: CT of the chest without contrast from 06/22/2019. RADIONUCLIDE AND DOSE: 10 mCi F18 FDG The route of agent administration: Intravenous FASTING BLOOD SUGAR: 93 mg/dl CONTRAST TYPE AND DOSE: No CT contrast given. TECHNIQUE: Blood glucose level was verified. Above dose of FDG was injected intravenously. 2-D seg mented attenuation correction images were obtained from the base of the skull to the midthighs. Nonc ontrast CT images were obtained for attenuation correction and fusion with emission images. CT image s were performed without oral or intravenous contrast and are not sensitive for parenchymal lesions. A series of overlapping emission PET images were obtained. Images reviewed and manipulated at [facility] [employer] work station by the radiologist. Images stored on PACS. LIMITATIONS: None. FINDINGS: HEAD AND NECK: No areas of abnormal metabolic activity in the soft tissues of the head and neck. CHEST: The spiculated nodule in the apical segment of the right upper lobe (image 59 of series 3) is unchanged in size and it demonstrates no abnormal FDG uptake. There are no areas of abnormal metabol ic activity in the chest. ABDOMEN AND PELVIS: The liver demonstrates homogeneous uptake with an average SUV of 2.3. There is e xpected physiologic activity throughout the gastrointestinal and genitourinary tracts. There are no areas of abnormal metabolic activity in the abdomen and pelvis. PROXIMAL LOWER EXTREMITIES: No areas of abnormal metabolic activity in the soft tissues of the lower extremities. BONES: No areas of abnormal metabolic activity in the skeleton. ADDITIONAL CT FINDINGS: Mild atherosclerotic calcification of the coronary arteries, colonic divertic ulosis, and left-sided hip arthroplasty hardware. OTHER: No other findings. IMPRESSION: The 12 x 9 mm spiculated nodule in the apical segment of the right upper lobe is unchang ed in size and it demonstrates no abnormal FDG uptake. Continued CT surveillance is recommended. TECHNICAL DOCUMENTATION: JOB ID: [id number] 2010 [employer]- All Rights Reserved Reading location - IP/workstation name: [email or web address]
== END ==
LOC: RAD 07:55
PROVIDERS: ATTEND Nurse Practitioner Family
DX: C34.11 Malignant neoplasm of upper lobe, right bronchus or lung (principal)
CPT/HCPCS: 78815; A9552

== ENCOUNTER → 2019-12-07 | Outpatient (CLI) | payer MEDICAID ==
--- NOTE | 2019-12-07 11:50 | RADIOLOGY REPORT (SQ) ---
EXAM DESCRIPTION: HAND LEFT 3 VIEWS IMAGES COMPLETED DATE/TIME: 12/07/2019 11:25 am REASON FOR STUDY: PAIN IN LEFT HAND M79.642 PAIN IN LEFT HAND COMPARISON: None. EXAM PARAMETERS: NUMBER OF VIEWS: Three views. TECHNIQUE: AP, lateral and oblique radiographic images acquired of the left hand. LIMITATIONS: None. FINDINGS: MINERALIZATION: Normal. BONES: No acute fracture or dislocation. No worrisome bone lesions. JOINTS: Mild to moderate narrowing at the first carpometacarpal and scaphotrapezial joints. SOFT TISSUES: No soft tissue swelling. No foreign body. OTHER: No other significant finding. IMPRESSION: 1. 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 2. No acute osseous findings. TECHNICAL DOCUMENTATION: JOB ID: [id number] 2010 [employer]- All Rights Reserved Reading location - IP/workstation name: [email or web address]
== END ==
LOC: OD 10:44
PROVIDERS: ATTEND Nurse Practitioner Family
DX: M79.642 Pain in left hand (principal)